=== PATIENT | male | born 1965 | race Caucasian/White ===

== ENCOUNTER 2024-05-16 08:32 | Inpatient (IN) | payer BC, SELFPAY ==
[2024-05-16] VITALS (12 sets, daily range): BP systolic 117–160; BP diastolic 74–101; PULSE 70–108; RESP 12–18; TEMP 36.1–37.4; O2SAT 95–99; BMI 22.9; BMI 22.6
--- NOTE | ~2024-05-16 | XR_ITS ---
EXAMINATION: XR HIP, LEFT CLINICAL INFORMATION: Pain following injury COMPARISON: None available. TECHNIQUE: Two views of the left hip and single view of the pelvis. FINDINGS: There is intertrochanteric fracture on the left without displacement of fragments. There is diffuse osteopenia. There is soft tissue swelling surrounding the left hip. The left and right hips are otherwise unremarkable. XR/XR hip LT w PEL1V IMPRESSION: Left intertrochanteric fracture
--- NOTE | ~2024-05-16 | FL_ITS ---
EXAMINATION: FLUOROSCOPY GUIDANCE FOR NEEDLE PLACEMENT CLINICAL INFORMATION: Fluoroscopic guidance was provided to Dr. Hernandez during left hip ORIF. COMPARISON: Left hip plain films 05/16/2024. TECHNIQUE: Fluoroscopic guidance. FINDINGS: Left hip ORIF with gamma nail and intramedullary digna. 4 images submitted show intramedullary digna and femoral head compression screw in place transfixing an intertrochanteric fracture of the left hip. No complication evident. FLUOROSCOPY TIME: 0.7 minutes IMAGES: 4 DOSE AREA PRODUCT: 0.203 mGy-m2 (milligray-meter squared) FL/FL guidance in OR IMPRESSION: Fluoroscopic guidance for left hip ORIF. Please refer to the full operative report for details. Electronically signed by: Alan Alvarez MD 07/23/2024 09:05 AM EDT
--- NOTE | 2024-05-16 10:07 | ED.GENADULT ---
HPI - General Adult General Chief complaint: Fall Stated complaint: FALL,L HIP PAIN W/DEFORMITY PER EMS Time Seen by Provider: 05/16/24 10:06 Source: patient and EMS Mode of arrival: EMS Limitations: no limitations History of Present Illness ED Provider: Blanca Tellez PA-C HPI narrative: Patient is a 58 year old assigned male at with no reported medical history presenting to the emergency department today with left hip pain. Patient states that he was walking his dog when another dog ran up, off leash, and caused his dog to pull him down. Patient denies any head strike or loss of consciousness. Patient states that his left hip hurts. Patient denies any dizziness, lightheadedness, abdominal pain, nausea, vomiting, fever, chills, blurry vision, double vision, loss of vision, chest pain, difficulty breathing, shortness of breath, back pain, night sweats, pain with urination, increased urinary frequency, increased urinary urgency, blood in his urine or stool, syncope or a near syncopal episode, bowel incontinence, bladder incontinence, or any other complaints at this time. Onset (ago): minute(s) Location: left (hip) Radiation: non-radiation Severity: mild Severity scale (1-10): 4 Quality: aching and dull Pain Consistency: constant Relieving factors: none Exacerbating factors: movement Associated symptoms: denies other symptoms Treatments prior to arrival: none Related Data Home Medications ?Medication ?Instructions ?Recorded ?Confirmed ibuprofen 200 mg tablet (Advil) 400 mg PO DAILY 05/16/24 05/16/24 multivitamin 1 tab PO DAILY 05/16/24 05/16/24 Allergies Allergy/AdvReac Type Severity Reaction Status Date / Time No Known Allergies Allergy Verified 05/16/24 08:38 [No Known Allergies*] Review of Systems Constitutional: Constitutional: Reports no additional constitutional complaints, Denies chills, Denies fever(s) and Denies night sweats Eyes: Eyes: Reports no additional eye complaints, Denies blurry vision, Denies change in vision, Denies diplopia, Denies eye discharge, Denies loss of vision and Denies eye pain ENT: Denies dizziness Cardiovascular: Cardiovascular: Reports no additional cardiovascular complaints, Denies chest pain, Denies lightheadedness, Denies Loss of Consciousness and Denies dyspnea Respiratory: Respiratory: Reports no additional respiratory complaints and Denies dyspnea Gastrointestinal: Gastrointestinal: Reports no additional gastrointestinal complaints, Denies abdominal pain, Denies melena, Denies hematochezia, Denies change in bowel habits and Denies change in stool character Genitourinary: Genitourinary: Reports no additional male genitourinary complaints, Denies hematuria, Denies oliguria, Denies difficulty urinating, Denies dysuria, Denies urinary frequency, Denies urinary hesitancy, Denies urinary incontinence and Denies urinary urgency Musculoskeletal: Musculoskeletal: Reports no additional musculoskeletal complaints, Denies numbness and Denies tingling Comments: left hip pain Neurologic: Denies dizziness, Denies loss of vision, Denies numbness and Denies tingling Psychiatric: Psychiatric: Reports no additional psychiatric complaints Endocrine: Endocrine: Reports no additional endocrine complaints Hematologic/Lymphatic: Hematologic/Lymphatic: Reports no additional hematologic/lymphatic complaints Allergic/Immunologic: Allergic/Immunologic: Reports no additional allergic/immunologic complaints PMFSH Past Medical History Attestation statement: The following information was validated with the patient. Source: old records reviewed and nursing notes reviewed Medical History (Updated 05/16/24 @ 15:21 by ARTURO Rob) No pertinent past medical history Social History Social History Smoked in Last 30 Days: No Use of substances other than those prescribed or required for medical reasons: No Advance Directives: No Advance Directives Information Provided: Yes Do you have a plan to hurt others: No Plan Physical Exam ED Vital Signs: Vital Signs - 24 hr 05/16/24 08:35 05/16/24 08:42 Temperature 98.4 F 98.4 F Pulse Rate 70 70 Respiratory Rate 18 18 Blood Pressure 148/87 H 148/87 H Pulse Oximetry 97 97 Oxygen Delivery Method Room Air Room Air BMI result Body Mass Index 22.9 Const General: cooperative, no acute distress, alert and awake Nutritional Appearance: well nourished Orientation/consciousness: patient oriented x3 Limitations: no limitations HENMT Head: Yes normal to inspection and Yes atraumatic Ears: hearing grossly normal bilaterally and external ears normal General nose exam: Normal external nose present, no nasal discharge noted and no epistaxis Face and sinus: Yes normal facial exam, No abrasion and No laceration Mouth: Normal oral and palatal mucosa present, no drooling and no muffled voice Eyes General: appearance normal, both eyes and all related structures Periorbital: periorbital findings normal Eyelids: Yes eyelids normal Conjunctivae: conjunctivae normal Pupils: Equal, round and reactive pupils present EOM: EOMs intact bilaterally Neck Neck: Yes normal visual inspection, Yes full ROM and Yes no lymphadenopathy Chest Chest palpation & inspection: normal inspection of the chest Resp Effort & Inspection: normal respiratory effort and able to speak in complete sentences GI Inspection: Yes normal to inspection Neuro General: patient oriented x3 and moves all extremities Cranial nerves: Yes Equal, round and reactive pupils present Cognition (Neuro): normal cognition Extrem Other: left leg shortened / rotated Pain with ROM of the left hip General: Yes capillary refill normal Psych Appearance: grossly normal Mental Status: mental status grossly normal Affect: normal affect Attitude: cooperative Thought process: Normal thought process present Thought content: Normal thought content present Insight: Good insight present (Psych) Medications Administered Generic Name Dose Route Start Last Admin Trade Name Freq PRN Reason Stop Dose Admin Oxycodone HCl 5 mg 05/16/24 12:02 05/16/24 13:41 Oxycodone Hcl Immed Release 5 Mg Tablet PO 5 mg Q6H PRN Administration Pain, Moderate(Pain Scale 4-6) Discontinued Medications Generic Name Dose Route Start Last Admin Trade Name Freq PRN Reason Stop Dose Admin Cefazolin Sodium/Dextrose 2 gm in 50 mls @ 100 mls/hr 05/16/24 13:48 05/16/24 14:31 Ancef IV 05/16/24 14:17 100 mls/hr PREOP ONE Administration Medical Decision Making Medical Decision Making [facility] Narrative: Patient is a 58 year old assigned male at with no reported medical history presenting to the emergency department today with left hip pain. Patient's physical exam was as noted in the physical exam portion of this note. Patient's blood work was unremarkable. Patient's EKG was unremarkable. Patient's left hip x-ray showed a left intertrochanteric fracture. I spoke to the orthopedic team who recommended admitting the patient to the medicine service and keeping him NPO at this time. I spoke to the hospitalist team who agreed to admission. I explained my physical exam findings as well as all test results to the patient. I answered all questions asked by the patient. Patient verbalized agreement and understanding with this treatment plan and admission. Differential Diagnosis Differential Diagnoses: The differential diagnosis associated with the presentation includes Hip fracture Fall Admission/Observation Consideration of admission/observation: Escalation of care including admission/observation considered Patient admitted. Consult Healthcare Provider Management of the patient was discussed with: Hospitalist (agreed to admission as noted in the MDM Rationale portion of this note.) and Irrigation Technician (spoke to the orthopedic team as noted in the MDM Rationale portion of this note.) Lab Data [facility] Lab Attestation statement: I reviewed the patient's lab results. My interpretation of these studies and their corresponding values is that they are grossly normal. 05/16/24 10:27 05/16/24 10:27 Labs: Lab Results 05/16/24 Range/Units 10:27 WBC 5.7 (4.8-10.8) X10*3/uL RBC 4.33 L (4.60-5.80) X10*6/uL Hgb 14.9 (14.0-18.0) g/dl Hct 42.7 (42.0-52.0) % MCV 98.6 H (80.0-98.0) fL MCH 34.4 H (27.0-33.0) pg MCHC 34.9 (31.0-36.0) g/dl RDW 12.4 (11.0-16.0) % Plt Count 197 (160-400) X10*3/uL MPV 8.1 L (9.4-12.4) fL Immature Gran % (Auto) 0.4 (0.0-0.4) % Neut % (Auto) 68.8 (45-73) % Lymph % (Auto) 18.4 L (20-40) % [place] % (Auto) 11.0 (2-11) % Eos % (Auto) 0.7 (0-4) % Baso % (Auto) 0.7 (0-2) % Lymph # (Auto) 1.1 L (1.2-4.9) X10*3/uL [place] # (Auto) 0.6 (0.1-1.2) X10*3/uL Eos # (Auto) 0.0 (0.0-0.4) X10*3/uL Baso # (Auto) 0.0 (0.0-0.2) X10*3/uL Abs Immat Gran (auto) 0.02 (0.00-0.03) X10*3/uL Absolute Neuts (auto) 3.9 (2.0-8.3) x10*3/uL Absolute Nucleated RBC 0.000 (0.0-0.012) X10*3/uL Nucleated RBC % (auto) 0.0 (0.0-0.2) /100WBC Sodium 144 (135-145) mmol/L Potassium 4.0 (3.3-5.1) mmol/L Chloride 106 (96-108) mmol/L Carbon Dioxide 24 (22-29) mmol/L Anion Gap 18 (12-20) BUN 13 (9-16) mg/dL Creatinine 0.72 (0.5-1.4) mg/dL Estim Creat Clear Calc 102.0 Estimated GFR > 60 Random Glucose 83 (60-115) mg/dL Calcium 9.2 (8.4-10.2) mg/dL Magnesium 1.8 (1.6-2.6) mg/dL Total Bilirubin 0.8 (0.0-1.0) mg/dL AST 60 H (5-37) U/L ALT 62 H (0-40) U/L Alkaline Phosphatase 68 (39-117) U/L Total Protein 6.9 (6.5-8.0) g/dL Albumin 4.5 (3.5-5.0) g/dL Independent Interpretation I performed an independent interpretation of an: Plain X-Ray Interpretation: My interpretation is in agreement with the radiologist's impression of this imaging study. EXAMINATION: XR HIP, LEFT CLINICAL INFORMATION: Pain following injury COMPARISON: None available. TECHNIQUE: Two views of the left hip and single view of the pelvis. FINDINGS: There is intertrochanteric fracture on the left without displacement of fragments. There is diffuse osteopenia. There is soft tissue swelling surrounding the left hip. The left and right hips are otherwise unremarkable. XR/XR hip LT w PEL1V IMPRESSION: Left intertrochanteric fracture Dictated By: Maegan Howell MD Signed By: Electronically signed by Maegan Howell MD 05/16/24 0959 Vent. Rate: 085 BPM Atrial Rate: 085 BPM P-R Int: 158 ms QRS Dur: 074 ms QT Int: 364 ms P-R-T Axes: 045 -38 -11 degrees QTc Int: 433 ms Normal sinus rhythm Left axis deviation Inferior infarct , age undetermined Abnormal ECG No previous ECGs available Electronically Signed By:PAUL VELAZQUEZ MD Dictated By: Paul Velazquez MD Signed By: Electronically signed by Palu Velazquez MD 05/16/24 1057 Radiology Impression Discussion of test interpretation with radiology: I have reviewed the radiologist's reading. Independent Historian Clinical information obtained from an independent historian. History obtained from or confirmed by: EMS (EMS provided additional history and confirmed the history provided by the patient.) Critical Care Time Critical Care Time Critical Care Time: Yes Total Critical Care Time: 38 Attestation: I spent 38 minutes of Critical Care Time with this patient. This does not include time spent on separately reported billable procedures. Discharge Plan Discharge Clinical Impression: Intertrochanteric fracture of left hip Patient Disposition: Admitted As Inpatient
--- NOTE | 2024-05-16 10:10 | ECG_ITS ---
Test Reason : mechanical fall Blood Pressure : / mmHG Vent. Rate : 085 BPM Atrial Rate : 085 BPM P-R Int : 158 ms QRS Dur : 074 ms QT Int : 364 ms P-R-T Axes : 045 -38 -11 degrees QTc Int : 433 ms Normal sinus rhythm Left axis deviation Inferior infarct , age undetermined Abnormal ECG No previous ECGs available Referred By: Blanca Tellez Electronically Signed By:KARLOS VELAZQUEZ MD
[2024-05-16 10:32] LABS: MANUAL DIFF FLAG NO
[2024-05-16 10:33] LABS: Basophils Percent Auto 0.7 % (0-2); Eosinophils Percent Auto 0.7 % (0-4); Hematocrit 42.7 % (42.0-52.0); Hemoglobin 14.9 g/dl (14.0-18.0); Imm Gran Abs Auto 0.02 X10*3/uL (0.00-0.03); Imm Gran Pct Auto 0.4 % (0.0-0.4); Lymphocytes Absolute Auto 1.1 X10*3/uL (1.2-4.9); Lymphocytes Percent Auto 18.4 % (20-40); Mean Corpuscular HGB Conc 34.9 g/dl (31.0-36.0); Mean Corpuscular Hemoglobin 34.4 pg (27.0-33.0); Mean Corpuscular Volume 98.6 fL (80.0-98.0); Mean Platelet Volume 8.1 fL (9.4-12.4); Monocytes Absolute Auto 0.6 X10*3/uL (0.1-1.2); Neutrophils Absolute Auto 3.9 x10*3/uL (2.0-8.3); Neutrophils Percent Auto 68.8 % (45-73); Platelet Count 197 X10*3/uL (160-400); Red Blood Count 4.33 X10*6/uL (4.60-5.80); Red Cell Distribution Width 12.4 % (11.0-16.0); White Blood Count 5.7 X10*3/uL (4.8-10.8)
--- NOTE | 2024-05-16 10:41 | PHA.MEDREC ---
Addendum entered by Simran Swan RPh 05/16/24 10:47: MED REC REVIEWED Original Note: Pharmacy Consult ? Medication Reconciliation Pharmacy has completed the medication reconciliation. Patient stated they are taking Advil 2 tabs daily and a multi vitamin tablet once daily.
[2024-05-16 10:47] LABS: Alanine Aminotransferase 62 U/L (0-40); Albumin Level 4.5 g/dL (3.5-5.0); Alkaline Phosphatase 68 U/L (39-117); Anion Gap 18 (12-20); Aspartate Amino Transferase 60 U/L (5-37); Bilirubin Total 0.8 mg/dL (0.0-1.0); Blood Urea Nitrogen 13 mg/dL (9-16); Calcium 9.2 mg/dL (8.4-10.2); Carbon Dioxide 24 mmol/L (22-29); Chloride 106 mmol/L (96-108); Estimated Glomerular Filt Rate > 60; Glucose Random 83 mg/dL (60-115); Magnesium 1.8 mg/dL (1.6-2.6); Sodium 144 mmol/L (135-145); Total Protein 6.9 g/dL (6.5-8.0)
--- NOTE | 2024-05-16 12:04 | P.HPHOSP_ITS ---
History of Present Illness Date of Service: 05/16/24 Attending physician on admission: Salvador Hoyos Chief Complaint: fall, l hip pain 58-year-old male with out any significant past medical history though does drink 2 vodka beverages on a nightly basis and is a former smoker with about a 20 pack-year history presented to the ED earlier today for evaluation of left hip pain following a mechanical fall. He reports he was walking his dog and was pulled down when his dog pulled in response to seeing another animal. He landed directly on the left hip. No head strike or loss of consciousness. He was able to get up but has been having difficulty bearing weight and ambulating. Since arrival, vitals are stable though mildly hypertensive at 148/87. Hematology studies unremarkable. Renal function normal, electrolyte levels normal. AST and ALT mildly elevated at 60 and 62 respectively. X-ray of the left hip/pelvis shows left intertrochanteric fracture. ED discussed case with orthopedic surgery recommending admission to medicine with plan for ORIF this afternoon. Review of Systems 2 Review of Systems: Yes all other systems are reviewed and are negative [facility] Medical History (Updated 05/16/24 @ 13:25 by ARTURO Rios) No pertinent past medical history Social History Smoked in Last 30 Days: No Use of substances other than those prescribed or required for medical reasons: No Advance Directives: No Advance Directives Information Provided: Yes Do you have a plan to hurt others: No Plan Meds Allergies Allergy/AdvReac Type Severity Reaction Status Date / Time No Known Allergies Allergy Verified 05/16/24 08:38 [No Known Allergies*] Home Medications ?Medication ?Instructions ?Recorded ?Confirmed ?Last Taken ?Type ibuprofen 200 mg tablet (Advil) 400 mg PO DAILY 05/16/24 05/16/24 05/15/24 History multivitamin 1 tab PO DAILY 05/16/24 05/16/24 05/15/24 History Physical Exam 2 Vital Signs and Narrative: Vital Signs: Last Vital Signs Temp 98.4 F 05/16/24 08:42 Pulse 70 05/16/24 08:42 Resp 18 05/16/24 08:42 BP 148/87 H 05/16/24 08:42 Pulse Ox 97 05/16/24 08:42 O2 Del Method Room Air 05/16/24 08:42 BMI result Body Mass Index 22.9 Results Labs 05/16/24 10:27 05/16/24 10:27 Labs: Laboratory Results - last 24 hr 05/16/24 10:27 MCV 98.6 H MCH 34.4 H MCHC 34.9 RDW 12.4 Plt Count 197 MPV 8.1 L Immature Gran % (Auto) 0.4 Neut % (Auto) 68.8 Lymph % (Auto) 18.4 L [place] % (Auto) 11.0 Eos % (Auto) 0.7 Baso % (Auto) 0.7 Lymph # (Auto) 1.1 L [place] # (Auto) 0.6 Eos # (Auto) 0.0 Baso # (Auto) 0.0 Abs Immat Gran (auto) 0.02 Absolute Neuts (auto) 3.9 Absolute Nucleated RBC 0.000 Nucleated RBC % (auto) 0.0 Anion Gap 18 Estim Creat Clear Calc 102.0 Estimated GFR > 60 Random Glucose 83 Calcium 9.2 Magnesium 1.8 Total Bilirubin 0.8 AST 60 H ALT 62 H Alkaline Phosphatase 68 Total Protein 6.9 Albumin 4.5 Imaging Radiologist's Impressions: Impressions Hip/Pelvis X-Ray 05/16/24 09:14 IMPRESSION: Left intertrochanteric fracture Assessment and Plan (1) Intertrochanteric fracture of left hip: Qualifiers: Encounter type: initial encounter Fracture type: closed Fracture alignment: nondisplaced Qualified Code(s): S72.145A - Nondisplaced intertrochanteric fracture of left femur, initial encounter for closed fracture Status: Acute Plan 58-year-old male with out any significant past medical history though does drink 2 vodka beverages on a nightly basis and is a former smoker with about a 20 pack-year history admitted for left intertrochanteric fracture #Left intertrochanteric fracture -plan per ortho surgery -keep npo -pain management prn #Alcohol use disorder -consumes 2-3 daily per patient. no hx w/d -monitor on ciwa for now, no evidence of wtihdrawal -po thiamine and folic acid #Transaminitis -likely d/t above dvt prophylaxis- scps for now full code pt requiers inpt stay at least 2 midnights for management of intertrochanteric fracture requiring surgical repair, expert consultation, pt eval and probable placement to str Quality Stroke Does the patient have a stroke diagnosis?: No VTE Prior VTE?: No VTE Risk Level:: Medical - moderate - high VTE Device Contraindication: N/A - Device Ordered VTE Drug Contraindication: Treatment Not Indicated
--- NOTE | 2024-05-16 12:55 | P.CONOP_ITS ---
History of Present Illness HPI Consult date: 05/16/24 Chief complaint: left interochanteric fracture Narrative: Patient is a 58-year-old male who presented to the emergency department after a fall earlier today. Patient reports that he was walking his dog, when a larger dog without a leash charged at them, causing the patient to fall onto his left hip. Patient immediately began to experience pain, and came to the emergency department. While in the ED, x-rays of the left hip were obtained, revealing minimally displaced intertrochanteric fracture of the left hip. Right now, the patient reports that he is feeling sore in his left hip. Patient has been totally nonweightbearing since arrival to the hospital. The patient this course of treatment is going to be at this time. Review of Systems 2 Review of Systems: Yes all other systems are reviewed and are negative PMFSH Social History Social History Smoked in Last 30 Days: No Use of substances other than those prescribed or required for medical reasons: No Advance Directives: No Advance Directives Information Provided: Yes Do you have a plan to hurt others: No Plan Meds Allergies Allergy/AdvReac Type Severity Reaction Status Date / Time No Known Allergies Allergy Verified 05/16/24 08:38 [No Known Allergies*] Active Medications: Current Medications Acetaminophen (Acetaminophen 325 Mg Tablet) 650 mg PO Q6H PRN PRN Reason: Pain, Mild (Pain Scale 1-3), fever or headache Calcium Carbonate (Calcium Carbonate 750 Mg Tab.Chew) 750 mg PO Q4H PRN PRN Reason: Heartburn Folic Acid (Folic Acid 1 Mg Tablet) 1 mg PO DAILY MEÑO Magnesium Hydroxide (Milk Of Magnesia 30 Ml Oral.Susp) 30 ml PO DAILY PRN PRN Reason: Constipation Melatonin (Melatonin 3 Mg Tablet) 6 mg PO BEDTIME PRN PRN Reason: Insomnia Morphine Sulfate (Morphine Sulfate 4 Mg/Ml Cartridge) 2 mg IVPUSH Q4H PRN; Protocol PRN Reason: Pain, Severe (Pain Scale 7-10) Oxycodone HCl (Oxycodone Hcl Immed Release 5 Mg Tablet) 5 mg PO Q6H PRN PRN Reason: Pain, Moderate(Pain Scale 4-6) Sodium Chloride (0.9 % Sodium Chloride Flush 3 Ml Syringe) 3 ml IVFLUSH QSHIFT MEÑO Thiamine HCl (Thiamine Hcl 100 Mg Tablet) 100 mg PO DAILY [facility] Home Medications ?Medication ?Instructions ?Recorded ?Confirmed ?Last Taken ?Type ibuprofen 200 mg tablet (Advil) 400 mg PO DAILY 05/16/24 05/16/24 05/15/24 History multivitamin 1 tab PO DAILY 05/16/24 05/16/24 05/15/24 History Physical Exam 2 Vital Signs: Vital Signs: Last Vital Signs Temp 98.4 F 05/16/24 08:42 Pulse 70 05/16/24 08:42 Resp 18 05/16/24 08:42 BP 148/87 H 05/16/24 08:42 Pulse Ox 97 05/16/24 08:42 O2 Del Method Room Air 05/16/24 08:42 BMI result Body Mass Index 22.9 Extrem: Other: No visible or palpable deformity of the left hip No erythema, ecchymosis, evidence of infection noted No shortening or rotational deformity of the leg noted Patient reports tenderness to gentle palpation of the greater trochanter of the left hip Distal sensation of the left lower extremity intact Capillary refill brisk Results Labs 05/16/24 10:27 05/16/24 10:27 Labs: Abnormal lab results 05/16/24 Range/Units 10:27 RBC 4.33 L (4.60-5.80) X10*6/uL MCV 98.6 H (80.0-98.0) fL MCH 34.4 H (27.0-33.0) pg MPV 8.1 L (9.4-12.4) fL Lymph % (Auto) 18.4 L (20-40) % Lymph # (Auto) 1.1 L (1.2-4.9) X10*3/uL AST 60 H (5-37) U/L ALT 62 H (0-40) U/L H & H 05/16/24 Range/Units 10:27 Hgb 14.9 (14.0-18.0) g/dl Hct 42.7 (42.0-52.0) % All other labs normal. Diagnostic results Hip x-ray: report reviewed and image reviewed Assessment and Plan (1) Intertrochanteric fracture of left hip: Qualifiers: Encounter type: initial encounter Fracture type: closed Fracture alignment: nondisplaced Qualified Code(s): S72.145A - Nondisplaced intertrochanteric fracture of left femur, initial encounter for closed fracture Status: Acute Plan 1. Left intertrochanteric hip fracture, minimally displaced At this time, the plan is to proceed with surgical intervention this patient Patient is booked for the OR later this afternoon with Dr. Hernandez Risks and benefits of surgery discussed with patient Patient is amenable to surgery at this time Patient informs me that he had his cup of coffee this morning, but other than that he has not eaten today Patient made NPO immediately Patient denies diabetes, smoking, blood thinners Procedures Date of Service Date of Service: 05/16/24
[2024-05-16] MEDS: oxyCODONE HCl Immed Release 5 MG TABLET PO ×2 (13:41→20:04)
--- NOTE | 2024-05-16 14:09 | PC.NURSE ---
Report called to Alexsandra Martino in Short Stay
[2024-05-16] MEDS: ceFAZolin Sodium/Dextrose,Iso 2 GM/50 ML PIGGYBACK IV (14:31)
[2024-05-16] MEDS: 0.9 % Sodium Chloride Flush 3 ML SYRINGE IVFLUSH (17:38)
--- NOTE | 2024-05-16 17:57 | HO.ANESPROP2 ---
FORMERLY [facility] Active Problems Active Problems: All Active Problems Intertrochanteric fracture of left hip (Acute) Past Medical History Medical History (Updated 05/16/24 @ 15:21 by ARTURO Rob) No pertinent past medical history Family History Family history of problems with anesthesia: No Surgical History History of Problems with Anesthesia: No Social History Social History Household Members Other:: Self with a dog Housing: House Do you presently have visiting nurse or other home services: No Patient Tobacco Use Status: Former Tobacco user Second Hand Smoke Exposure: No Meds Allergies Allergy/AdvReac Type Severity Reaction Status Date / Time No Known Allergies Allergy Verified 05/16/24 08:38 [No Known Allergies*] Active Medications: Current Medications Acetaminophen (Acetaminophen 325 Mg Tablet) 650 mg PO Q6H PRN PRN Reason: Pain, Mild (Pain Scale 1-3), fever or headache Calcium Carbonate (Calcium Carbonate 750 Mg Tab.Chew) 750 mg PO Q4H PRN PRN Reason: Heartburn Folic Acid (Folic Acid 1 Mg Tablet) 1 mg PO DAILY MEÑO Magnesium Hydroxide (Milk Of Magnesia 30 Ml Oral.Susp) 30 ml PO DAILY PRN PRN Reason: Constipation Melatonin (Melatonin 3 Mg Tablet) 6 mg PO BEDTIME PRN PRN Reason: Insomnia Morphine Sulfate (Morphine Sulfate 4 Mg/Ml Cartridge) 2 mg IVPUSH Q4H PRN; Protocol PRN Reason: Pain, Severe (Pain Scale 7-10) Oxycodone HCl (Oxycodone Hcl Immed Release 5 Mg Tablet) 5 mg PO Q6H PRN PRN Reason: Pain, Moderate(Pain Scale 4-6) Last Admin: 05/16/24 13:41 Dose: 5 mg Sodium Chloride (0.9 % Sodium Chloride Flush 3 Ml Syringe) 3 ml IVFLUSH QSHIFT [facility] Last Admin: 05/16/24 17:38 Dose: 3 ml Thiamine HCl (Thiamine Hcl 100 Mg Tablet) 100 mg PO DAILY [facility] Home Medications ?Medication ?Instructions ?Recorded ?Confirmed ?Last Taken ?Type ibuprofen 200 mg tablet (Advil) 400 mg PO DAILY 05/16/24 05/16/24 05/15/24 History multivitamin 1 tab PO DAILY 05/16/24 05/16/24 05/15/24 History Exam Height,Weight and Vital Signs: Height 5 ft 7 in Weight 65.4 kg Last Vital Signs Temp 97.8 F 05/16/24 16:00 Pulse 104 H 05/16/24 16:00 Resp 18 05/16/24 16:00 BP 160/90 H 05/16/24 16:00 Pulse Ox 96 05/16/24 16:00 O2 Del Method Room Air 05/16/24 16:00 Pertinent Lab Results Pertinent Lab Results: Laboratory Tests 05/16/24 05/16/24 10:27 16:02 WBC 5.7 RBC 4.33 L Hgb 14.9 Hct 42.7 MCV 98.6 H MCH 34.4 H MCHC 34.9 RDW 12.4 Plt Count 197 MPV 8.1 L Immature Gran % (Auto) 0.4 Neut % (Auto) 68.8 Lymph % (Auto) 18.4 L Dawes % (Auto) 11.0 Eos % (Auto) 0.7 Baso % (Auto) 0.7 Lymph # (Auto) 1.1 L Dawes # (Auto) 0.6 Eos # (Auto) 0.0 Baso # (Auto) 0.0 Abs Immat Gran (auto) 0.02 Absolute Neuts (auto) 3.9 Absolute Nucleated RBC 0.000 Nucleated RBC % (auto) 0.0 Sodium 144 Potassium 4.0 Chloride 106 Carbon Dioxide 24 Anion Gap 18 BUN 13 Creatinine 0.72 Estim Creat Clear Calc 102.0 Estimated GFR > 60 Random Glucose 83 Calcium 9.2 Magnesium 1.8 Total Bilirubin 0.8 AST 60 H ALT 62 H Alkaline Phosphatase 68 Total Protein 6.9 Albumin 4.5 Blood Type O Positive Antibody Screen NEGATIVE Airway Mallampati Class: II TM Dist: >3cm Neck ROM: Full Assessment and Plan Assessment Anesthesia Assessment: Anesthesia Plan Discussed and Chart Reviewed Final Anesthetic Review Family History of Problems with Anesthesia: No History of Problems with Anesthesia: No NPO: Yes ASA Class: I and Emergency Final Preanesthetic Review: No Changes in Pt Med Stat, Meds/Allgs Chart Reviewed, Consent Obtained/Reviewed and Anes Risks/Benef Reviewed Patient Risk: Intermediate Procedure Risk: Intermediate Anesthetic Plan Anesthetic Plan: GA and Regional Block
[2024-05-16] MEDS: fentaNYL citrate/PF 100 MCG/2 ML VIAL 50 MCG IVPUSH (20:09)
[2024-05-16] MEDS: oxyCODONE HCl Immed Release 5 MG TABLET 10 MG PO (20:52)
[2024-05-16] MEDS: Aspirin 325 MG TABLET PO (20:52)
[2024-05-17] VITALS (9 sets, daily range): BP systolic 123–158; BP diastolic 80–91; PULSE 76–86; RESP 16–18; TEMP 36.2–36.8; O2SAT 94–98
[2024-05-17] MEDS: ceFAZolin Sodium/Dextrose,Iso 2 GM/50 ML PIGGYBACK IV ×2 (03:32→11:32)
[2024-05-17] MEDS: 0.9 % Sodium Chloride Flush 3 ML SYRINGE IVFLUSH ×4 (05:13→19:50)
[2024-05-17 06:51] LABS: MANUAL DIFF FLAG NO
[2024-05-17 06:59] LABS: Basophils Percent Auto 0.1 % (0-2); Hematocrit 35.5 % (42.0-52.0); Hemoglobin 12.3 g/dl (14.0-18.0); Imm Gran Abs Auto 0.02 X10*3/uL (0.00-0.03); Imm Gran Pct Auto 0.3 % (0.0-0.4); Lymphocytes Absolute Auto 0.5 X10*3/uL (1.2-4.9); Lymphocytes Percent Auto 6.7 % (20-40); Mean Corpuscular HGB Conc 34.6 g/dl (31.0-36.0); Mean Corpuscular Hemoglobin 34.2 pg (27.0-33.0); Mean Corpuscular Volume 98.6 fL (80.0-98.0); Mean Platelet Volume 8.7 fL (9.4-12.4); Monocytes Absolute Auto 0.5 X10*3/uL (0.1-1.2); Monocytes Percent Auto 7.6 % (2-11); Neutrophils Absolute Auto 5.7 x10*3/uL (2.0-8.3); Neutrophils Percent Auto 85.3 % (45-73); Platelet Count 212 X10*3/uL (160-400); Red Cell Distribution Width 12.1 % (11.0-16.0); White Blood Count 6.7 X10*3/uL (4.8-10.8)
[2024-05-17] MEDS: Aspirin 325 MG TABLET PO ×2 (07:31→19:50)
[2024-05-17] MEDS: Thiamine HCL 100 MG TABLET PO (07:31)
[2024-05-17] MEDS: Folic Acid 1 MG TABLET PO (07:32)
[2024-05-17] MEDS: oxyCODONE HCl Immed Release 5 MG TABLET 10 MG PO ×4 (07:38→19:54)
--- NOTE | 2024-05-17 07:59 | P.BOP_ITS ---
Brief Operative Note Date of Service: 05/16/24 Pre-op diagnosis: Left hip intertrochanteric fracture Post-op diagnosis: same Procedure: Left hip short gamma nail placement Implants: Wei short gamma nail measuring 11 mm in diameter by 180 mm in length with a 125 degree neck-shaft angle, a standard set screw, lag screw measuring 100 mm in length, distal locking bolt measuring 37.5 mm in length Surgeon: Alfredo Hernandez MD Anesthesia: GLMA Was an Restaurant Line Server used for this Procedure?: No Estimated blood loss (mL): 100 Pathology: none sent Condition: stable Disposition: PACU
--- NOTE | 2024-05-17 08:01 | P.OP_ITS ---
Operative Note Operative Note Date of Service: 05/16/24 Narrative: After the patient was identified as Ulysses Guardado and his left hip was initialed by myself they were brought to the operating room where general anesthesia via LMA was induced by the anesthesiologist in routine fashion. The patient was given 2 g of IV Ancef for infection prophylaxis. The patient was then gently transferred from the hospital bed onto the fracture table. The patient's right lower extremity was placed into the well leg milligan. The patient's left lower extremity was placed in gentle in-line traction with their patella parallel to the floor. All bony prominences were well padded. C-arm AP and lateral radiographs were taken to confirm good fracture reduction. The patient's left hip region was prepped and draped in sterile fashion. A formal time-out was completed. A #10 scalpel blade was used to make a 5 cm incision just proximal to the tip of the greater trochanter. A curved cannulated awl was introduced into the proximal femur in routine fashion. A ball-tipped guidewire was then placed through the cannula and into the femoral canal. The awl was removed. Reaming was begun with a 9 mm reamer. Reaming was increased incrementally up to a size 13 reamer distally. The proximal canal was reamed with a 15.5 mm reamer. The gamma nail measuring 11 mm in diameter by 180 mm in length was passed over the guidewire. Good fracture reduction and nail positioning were confirmed using C-arm AP and lateral radiographs. A 2 cm incision was then made where the lag screw trocar met the patient's lateral thigh. The subcutaneous tissues and fascia constantin were split down to the lateral cortex of the femur using a hemostat. The lag screw trocar was passed down to the lateral cortex of the femur. A threaded guidewire was then placed into the inferior aspect of the femoral head on the AP x-ray and the center of the femoral head on the lateral x-ray. The guidewire measured 100 mm in length. Reaming was then performed over the guidewire to a depth of 100 mm. The lag screw measuring 100 mm in length was then placed over the guidewire. The guidewire was removed. The set screw was then placed into the nail and tightened fully. It was then turned 1/4 of a turn counter-clockwise to allow for fracture compression. The end cap was then put into place in routine fashion. A 2 cm incision was then made where the distal locking bolt trocar met the lateral aspect of the patient's thigh. The subcutaneous tissues and the fascia constantin were split down to the lateral cortex of the femur. The locking bolt hole was drilled in routine fashion. The drill bit measured 37.5 mm in length. The distal locking bolt measuring 37.5 mm in length was put into place without difficulty. Final AP and lateral radiographs showed good fracture reduction and hardware positioning. All 3 wounds were irrigated with copious amounts of normal saline solution. The distal 2 wounds were closed with 2-0 Vicryl and skin madelyn. The proximal wound was once again irrigated. The fascia constantin was closed with 0 Vicryl [id number] interrupted suture. The wound was once again irrigated. The subcutaneous tissues were closed with 2-0 Vicryl interrupted suture. The skin was closed with skin stapl es. Dry sterile dressing was placed over all incisions. The patient was gently transferred from the fracture table onto their hospital bed. The patient was awoken and extubated in the operating room. The patient was transferred to the recovery room in stable condition.
[2024-05-17 08:06] LABS: Anion Gap 14 (12-20); Blood Urea Nitrogen 17 mg/dL (9-16); Creatinine Clr Calc Pharmacy 74.9; Estimated Glomerular Filt Rate > 60
[2024-05-17 08:07] LABS: Calcium 8.6 mg/dL (8.4-10.2); Carbon Dioxide 25 mmol/L (22-29); Chloride 101 mmol/L (96-108); Glucose Random 239 mg/dL (60-115); Potassium 3.8 mmol/L (3.3-5.1); Sodium 136 mmol/L (135-145)
--- NOTE | 2024-05-17 08:45 | P.PNIM_ITS ---
Subjective Subjective Date of Service: 05/17/24 Interval History: pain controlled Physical Exam 2 Vital Signs: Vital Signs: Last Vital Signs Temp 98.0 F 05/17/24 08:00 Pulse 86 05/17/24 08:00 Resp 16 05/17/24 08:00 BP 144/87 H 05/17/24 08:00 Pulse Ox 97 05/17/24 08:00 O2 Del Method Room Air 05/17/24 08:00 O2 Flow Rate 2 05/16/24 20:29 BMI result Body Mass Index 22.6 General: AO X 3, no acute distress Resp: CTA bilateral, no accessory muscles used CVS: S1,S2,RRR GI: soft, non tender, non distended Neuro: motor grossly intact, alert Psych: appropriate affect, appropriate insight Objective Data Active Medications Acetaminophen (Acetaminophen 325 Mg Tablet) 650 mg PO Q6H PRN PRN Reason: Pain, Mild (Pain Scale 1-3), fever or headache Aspirin (Aspirin 325 Mg Tablet) 325 mg PO BID [facility] Last Admin: 05/17/24 07:31 Dose: 325 mg Documented By: MADI Calcium Carbonate (Calcium Carbonate 750 Mg Tab.Chew) 750 mg PO Q4H PRN PRN Reason: Heartburn Folic Acid (Folic Acid 1 Mg Tablet) 1 mg PO DAILY [facility] Last Admin: 05/17/24 07:32 Dose: 1 mg Documented By: MADI Cefazolin Sodium/Dextrose (Ancef) 2 gm in 50 mls @ 100 mls/hr IV Q8H [facility] Stop: 05/17/24 15:00 Last Infusion: 05/17/24 05:16 Dose: Infused Documented By: KRISTOFER Magnesium Hydroxide (Milk Of Magnesia 30 Ml Oral.Susp) 30 ml PO DAILY PRN PRN Reason: Constipation Magnesium Hydroxide (Milk Of Magnesia 30 Ml Oral.Susp) 30 ml PO DAILY PRN PRN Reason: Constipation Melatonin (Melatonin 3 Mg Tablet) 6 mg PO BEDTIME PRN PRN Reason: Insomnia Morphine Sulfate (Morphine Sulfate 4 Mg/Ml Cartridge) 2 mg IVPUSH Q4H PRN; Protocol PRN Reason: Pain, Severe (Pain Scale 7-10) Oxycodone HCl (Oxycodone Hcl Immed Release 5 Mg Tablet) 10 mg PO Q4H PRN PRN Reason: Pain, Severe (Pain Scale 7-10) Last Admin: 05/17/24 07:38 Dose: 10 mg Documented By: MADI Oxycodone HCl (Oxycodone Hcl Immed Release 5 Mg Tablet) 5 mg PO Q4H PRN PRN Reason: Pain, Moderate(Pain Scale 4-6) Sodium Chloride (0.9 % Sodium Chloride Flush 3 Ml Syringe) [facility] Last Admin: 05/17/24 07:30 Dose: 3 ml Documented By: MADI Sodium Chloride (0.9 % Sodium Chloride Flush 3 Ml Syringe) 3 ml IVFLUSH [facility] Last Admin: 05/17/24 07:32 Dose: Not Given Documented By: MADI Non-Admin Reason: already documented Thiamine HCl (Thiamine Hcl 100 Mg Tablet) 100 mg PO DAILY [facility] Last Admin: 05/17/24 07:31 Dose: 100 mg Documented By: MADI Labs 05/17/24 05:38 05/17/24 05:38 Labs: Laboratory Results - last 24 hr 05/16/24 05/16/24 05/17/24 10:27 16:02 05:38 MCV 98.6 H 98.6 H MCH 34.4 H 34.2 H MCHC 34.9 34.6 RDW 12.4 12.1 Plt Count 197 212 MPV 8.1 L 8.7 L Immature Gran % (Auto) 0.4 0.3 Neut % (Auto) 68.8 85.3 H Lymph % (Auto) 18.4 L 6.7 L Walsh % (Auto) 11.0 7.6 Eos % (Auto) 0.7 0.0 Baso % (Auto) 0.7 0.1 Lymph # (Auto) 1.1 L 0.5 L Walsh # (Auto) 0.6 0.5 Eos # (Auto) 0.0 0.0 Baso # (Auto) 0.0 0.0 Abs Immat Gran (auto) 0.02 0.02 Absolute Neuts (auto) 3.9 5.7 Absolute Nucleated RBC 0.000 0.000 Nucleated RBC % (auto) 0.0 0.0 Anion Gap 18 14 Estim Creat Clear Calc 102.0 74.9 Estimated GFR > 60 > 60 Random Glucose 83 239 H Calcium 9.2 8.6 D Magnesium 1.8 Total Bilirubin 0.8 AST 60 H ALT 62 H Alkaline Phosphatase 68 Total Protein 6.9 Albumin 4.5 Blood Type O Positive Antibody Screen NEGATIVE Assessment and Plan (1) Intertrochanteric fracture of left hip: Status: Acute (2) Alcoholic fatty liver: Status: Acute (3) Hyperglycemia: Status: Acute Plan 58M no significant pmh presented with mechanical fall complciated by left intertrochanteric fracture Left intertrochanteric fracture due to mechanical fall Postop day 1 Management per orthopedic surgery Alcohol dependence with Alcoholic fatty liver Monitor for withdrawal, alcohol cessation Hyperglycemia Check A1c DVT prophylaxis-aspirin 325 b.i.d. Full code reason for continued hospitalization: Postop monitoring Quality Stroke Does the patient have a stroke diagnosis?: No VTE Prior VTE?: No VTE Risk Level:: Medical - moderate - high VTE Device Contraindication: N/A - Device Ordered VTE Drug Contraindication: Treatment Not Indicated
--- NOTE | 2024-05-17 09:12 | MHC.CM.PN ---
Addendum entered by Nancy Mary 05/17/24 09:15: [facility] NOTIFIED OF PT IN CASE PT IS ABLE TO DC HOME Original Note: PT REPORTS HE LIVES ALONE WITH HIS DOG HE HAS NO SERVICES AND NO DME PT DECLINES TO COMPLETE A HCP PCP: CRYSTAL MALIK DCP: HOME NO SERVICES PT SAYS HIS GF WILL BE STAYING WITH HIM AT DC HE HAS A RIDE HOME
--- NOTE | 2024-05-17 09:18 | PM.PNORT ---
Subjective Subjective Date of Service: 05/17/24 Interval history: Patient is a 58 YO M who is POD 1 for L IMN with Dr. Hernandez secondary to L hip intertrochanteric fracture. Today, the patient reports that he is feeling well today. Patient reports that he has been moving his L leg since surgery. Patient reports that he has been taking his pain medication, and that he is only experiencing soreness at this time. No other acute concerns at this time. Physical Exam Vital Signs: Vital Signs: Last Vital Signs Temp 98.0 F 05/17/24 08:00 Pulse 86 05/17/24 08:00 Resp 18 05/17/24 08:00 BP 144/87 H 05/17/24 08:00 Pulse Ox 97 05/17/24 08:00 O2 Del Method Room Air 05/17/24 08:00 O2 Flow Rate 2 05/16/24 20:29 BMI result Body Mass Index 22.6 Extrem: Other: Dressing in place, clean and dry Sensation to the distal LLE intact Capillary refill brisk Compartments soft, nontender No erythema or edema noted in the L calf Patient is able to flex at the hip without pain or difficulty Procedures Date of Service Date of Service: 05/17/24 Progress Note: A&P Assessment and plan (1) Intertrochanteric fracture of left hip: Status: Acute Plan 1. L femur intertrochanteric fracture, s/p IM nail DOS 05/16/24 Patient is recovering well postoperatively Patient is educated about the typical postoperative course Patient will be evaluated by PT and OT today Continue Aspirin 325 mg PO BID for anticoagulation Continue all other recommendations per medicine Time Spent With Patient Time: Total time managing care of this patient today ____ minutes. Quality Stroke Does the patient have a stroke diagnosis?: No VTE Prior VTE?: No VTE Risk Level:: Medical - moderate - high VTE Device Contraindication: N/A - Device Ordered VTE Drug Contraindication: Treatment Not Indicated
--- NOTE | 2024-05-17 10:35 | HO.POSTANES ---
Post Anesthesia Evaluation Post Anesthesia Evaluation Date of Service: 05/17/24 Vital Signs: Vital Signs Temp Pulse Resp BP Pulse Ox O2 Del Method 05/17/24 08:00 98.0 F 86 18 144/87 H 97 Room Air 05/17/24 08:00 98.0 F 86 16 144/87 H 97 Room Air 05/17/24 04:15 97.3 F 83 18 123/84 97 Room Air 05/17/24 04:00 97.2 F 83 18 123/84 98 Room Air 05/16/24 23:51 96.9 F 95 18 117/74 97 Room Air Anesthesia: General Mental Status: Awake Pain Control: Satisfactory Nausea/Vomiting: None Hydration: Adequate Anesthesia-Related Issues: No Anes. Related Issues
[2024-05-18 03:50] VITALS: BP 142/83; PULSE 84; RESP 16; TEMP 36.2; O2SAT 97
[2024-05-18] MEDS: oxyCODONE HCl Immed Release 5 MG TABLET 10 MG PO ×2 (03:59→08:20)
[2024-05-18 04:00] LABS: Estimated Average Glucose 94 mg/dL; Hemoglobin A1c % 4.9 % (<6.0)
[2024-05-18 06:36] LABS: Estimated Average Glucose 94 mg/dL; Hemoglobin A1c % 4.9 % (<6.0)
[2024-05-18 07:58] VITALS: BP 173/100; PULSE 98; RESP 18; TEMP 36.4; O2SAT 97
[2024-05-18] MEDS: Thiamine HCL 100 MG TABLET PO (08:20)
[2024-05-18] MEDS: Folic Acid 1 MG TABLET PO (08:20)
[2024-05-18] MEDS: Aspirin 325 MG TABLET PO (08:20)
[2024-05-18] MEDS: 0.9 % Sodium Chloride Flush 3 ML SYRINGE IVFLUSH (08:21)
--- NOTE | 2024-05-18 09:09 | PM.DS ---
DS: Providers Provider Date of Service: 05/18/24 Date of admission: 05/16/24 12:02 Primary care physician: Joey Adame MD DS: Diagnosis Discharge Diagnosis (1) Intertrochanteric fracture of left hip: Status: Acute DS: Summary Hospital Course Hospital Course: from initial hpi: 58-year-old male with out any significant past medical history though does drink 2 vodka beverages on a nightly basis and is a former smoker with about a 20 pack-year history presented to the ED earlier today for evaluation of left hip pain following a mechanical fall. He reports he was walking his dog and was pulled down when his dog pulled in response to seeing another animal. He landed directly on the left hip. No head strike or loss of consciousness. He was able to get up but has been having difficulty bearing weight and ambulating. Since arrival, vitals are stable though mildly hypertensive at 148/87. Hematology studies unremarkable. Renal function normal, electrolyte levels normal. AST and ALT mildly elevated at 60 and 62 respectively. X-ray of the left hip/pelvis shows left intertrochanteric fracture. ED discussed case with orthopedic surgery recommending admission to medicine with plan for ORIF this afternoon. hospital course: Patient was admitted for mechanical fall complicated by left intertrochanteric fracture. Underwent IMN on 05/16/2024. Patient tolerated surgery well. Will be discharged home on high-dose aspirin for DVT prophylaxis and follow up with Orthopedics in 2 weeks. For alcohol dependence with alcoholic fatty liver patient had no signs of withdrawal. Alcohol cessation is recommended. Patient had 1 lab value of hyperglycemia. A1c was normal at 4.9. Patient is feeling better, will be discharged home wi home pt. Time Attestation Discharge Coordination Time (in mins): 33 Quality: Safe Use of Opioids Does Pt have an Active Cancer Diagnosis on the Problem List?: No Quality: Stroke Does the patient have a stroke diagnosis?: No Physical Exam Vital Signs: Vital Signs: Last Vital Signs Temp 97.6 F 05/18/24 07:58 Pulse 98 05/18/24 07:58 Resp 18 05/18/24 07:58 BP 173/100 H 05/18/24 07:58 Pulse Ox 97 05/18/24 07:58 O2 Del Method Room Air 05/18/24 07:58 O2 Flow Rate 2 05/16/24 20:29 BMI result Body Mass Index 22.6 Extrem: Other: Dressing in place, clean and dry Sensation to the distal LLE intact Capillary refill brisk Compartments soft, nontender No erythema or edema noted in the L calf Patient is able to flex at the hip without pain or difficulty DS: Data Data Completed and Pending Labs on day of discharge: Laboratory Results - last 24 hr 05/17/24 05/18/24 05:38 05:33 Estimat Average Glucose 94 94 Hemoglobin A1c % 4.9 4.9 Discharge Plan Discharge Anticipated Discharge Date/Time: 05/18/24 09:01 Patient Disposition: Home Health Service Discharge Diagnosis: hip fracture Referrals: Joey Adame MD [Primary Care Provider] - 1 Week Alfredo Hernandez MD [Physician] - 2 Weeks Discharge Medications: New aspirin 325 mg Tablet 325 mg PO BID Qty: 60 0RF oxycodone 5 mg Tablet 10 mg PO Q4H PRN (Reason: Pain, Severe (Pain Scale 7-10)) Qty: 30 0RF Rx Instructions: Partial Fill upon patient request. Continued multivitamin Tablet 1 tab PO DAILY Discontinued ibuprofen [Advil] 200 mg Tablet 400 mg PO DAILY Discharge Orders: Discharge Order (Routine); Ordered 05/18/24 Ordered By: Alonzo Croft Diet: Advance to usual diet Activity on Discharge: As tolerated Stand Alone Forms: Patient Portal Discharge page Print Language: Icelandic Care Plan Goals: recovery Health Concerns: hip fracture Plan of Treatment: dvt prophylaxis with asa for 4 weeks, follow up with orthopedics in 2 weeks Continue use of walker until follow up Weight bearing as tolerated Leave dressing in place until follow up No showering, sponge bathing until follow up Work with PT services for ROM, strengthening Assessment: see above
--- NOTE | 2024-05-18 09:36 | W.MHC.F2F ---
Service Date Service Date: 05/18/24 Encounter Date of encounter: 05/18/24 Reasons for Services Signs and symptoms assessed: difficulty ambiulating postop Reason for physical therapy: home safety and mobility, therapeutic exercises and restore joint function Reason for occupational therapy: home safety and mobility, therapeutic exercises and restore joint function Homebound: Leaving the home is medically contraindicated at this time without the asist of a device and/or another person due th the listed conditions above and below. Reason homebound: pain with transfers Certification: Based on the above findings, I certify that this patient is confined to the home and needs intermittent mcc care, physical therapy and/or speech therapy, or continues to need occupational therapy. The patient is under my care, and I have initiated the establishment of the plan of care. The patient will be followed by a physician who will periodically review the plan of care. Time Spent With Patient Time: Total time managing care of this patient today ____ minutes.
--- NOTE | 2024-05-18 10:43 | P.PNOP_ITS ---
Subjective Subjective Date of Service: 05/18/24 Interval history: Patient is a 58-year-old male who is postop day 2 status post left intramedullary nail placement after intertrochanteric hip fracture. Today, the patient reports that he is doing well, and is experiencing minimal pain. Ho wever, the patient reports significant swelling in his left knee, ongoing since last night. Patient denies any erythema, ecchymosis. Patient reports that he has been working with physical therapy, and he is not having difficulty ambulating. Per Medicine, plan is to discharge the patient home with services today. Physical Exam Vital Signs: Vital Signs: Last Vital Signs Temp 97.6 F 05/18/24 07:58 Pulse 98 05/18/24 07:58 Resp 18 05/18/24 07:58 BP 173/100 H 05/18/24 07:58 Pulse Ox 97 05/18/24 07:58 O2 Del Method Room Air 05/18/24 07:58 O2 Flow Rate 2 05/16/24 20:29 BMI result Body Mass Index 22.6 Extrem: Other: Incision site clean, dry, intact, Aquacel dressing in place No erythema or evidence of infection noted No ecchymosis Noted effusion of the left knee, mildly tender to palpation no erythema, ecchymosis, evidence of infection No open areas Patient is able to flex at the hip Mild tenderness to palpation about the greater trochanter of the left hip Sensation to the distal left lower extremity intact Capillary refill brisk Procedures Date of Service Date of Service: 05/18/24 Progress Note: A&P Assessment and plan (1) Intertrochanteric fracture of left hip: Status: Acute Plan 1. Left hip intertrochanteric fracture status post IM nail placement with Dr. Hernandez DOS 05/16/2024 Patient is recovering well postoperatively Patient is educated about the typical postoperative course Gauze and tape overlying Aquacel dressing removed today Aquacel dressing reinforced with tape proximally and distally Patient is informed of proper Aquacel dressing precautions, namely not getting the dressing wet and keeping it in place Patient informed that if it dressing does get wet or starts to come off, he should call our office and have the dressing replaced Patient informed he can continue to weightbear as tolerated Plan per Medicine is for discharge home with visiting services as patient was cleared for stairs with physical therapy yesterday Patient will follow-up in the office in 2 weeks for wound check, potential staple removal, sooner with any acute concerns Time Spent With Patient Time: Total time managing care of this patient today ____ minutes. Quality Stroke Does the patient have a stroke diagnosis?: No VTE Prior VTE?: No VTE Risk Level:: Medical - moderate - high VTE Device Contraindication: N/A - Device Ordered VTE Drug Contraindication: Treatment Not Indicated
--- NOTE | 2024-05-18 10:50 | MHC.CM.PN ---
PT CLEARED TO DC TODAY, HOME WITH [facility] FOR PT AND OT PT HAS ARRANGED HIS OWN TRANSPORTATION
== END 2024-05-18 12:32 | disposition home health service (06) | DRG 308 ==
LOC: HO.ED 10:07 → HO.EDOVER 12:07 → HO.S3 14:56
PROVIDERS: Orthopaedic Surgery; Physician Assistant Medical; Admitting Provider Physician Assistant; Emergency Provider Emergency Medicine Emergency Medical Services; PCP Internal Medicine; Visit Provider Internal Medicine
PROC: 0QS736Z Reposition Left Upper Femur with Intramedullary Internal Fixation Device, Percutaneous Approach (ICD-10-PCS; principal; 2024-05-16 15:30)
DX: S72.145A Nondisplaced intertrochanteric fracture of left femur, initial encounter for closed fracture (principal); K70.0 Alcoholic fatty liver; F10.20 Alcohol dependence, uncomplicated; W19.XXXA Unspecified fall, initial encounter; Y93.K1 Activity, walking an animal; Z87.891 Personal history of nicotine dependence; Z79.899 Other long term (current) drug therapy
CPT/HCPCS: 36415; 73502; 80048; 80053; 83036; 83735; 85025; 86850; 86900; 86901; 93005; 97116; 97161; 97165; 99285; C1713; J0131; J0690; J1100; J2250; J2405; J2704; J2795; J3010

== ENCOUNTER → 2024-05-16 10:10 | Outpatient (BNV) | payer SELFPAY | PROVIDERS: Emergency Provider Emergency Medicine Emergency Medical Services; PCP Internal Medicine; Visit Provider Internal Medicine Cardiovascular Disease | DX: R94.31 Abnormal electrocardiogram [ECG] [EKG] (principal) | CPT/HCPCS: 93010 ==

== ENCOUNTER → 2024-05-16 12:02 | Outpatient (BNV) | payer BC, SELFPAY | PROVIDERS: Admitting Provider Physician Assistant; Emergency Provider Emergency Medicine Emergency Medical Services; PCP Internal Medicine | DX: S72.145A Nondisplaced intertrochanteric fracture of left femur, initial encounter for closed fracture (principal) | CPT/HCPCS: 27245; 99024; 99222 ==

== ENCOUNTER → 2024-05-16 12:02 | Outpatient (BNV) | payer BC, SELFPAY | PROVIDERS: Admitting Provider Physician Assistant; Emergency Provider Emergency Medicine Emergency Medical Services; PCP Internal Medicine; Visit Provider Physician Assistant | DX: S72.145A Nondisplaced intertrochanteric fracture of left femur, initial encounter for closed fracture (principal); W19.XXXA Unspecified fall, initial encounter; R74.01 Elevation of levels of liver transaminase levels | CPT/HCPCS: 99223; 99232; 99239; G0180 ==

== ENCOUNTER 2024-06-04 09:20 | Outpatient (AMB) | payer BC, SELFPAY ==
--- NOTE | 2024-06-04 09:23 | A.OFFVIS_ITS ---
Intake Visit Reasons: PO LT hip IMN 05/16/2024 DR Michele Note: Ulysses is a 58 year old male who presents to the office today for PO LT hip IMN 05/16/2024 Patient reports he is doing well, states his pain is tolerable and is able to get through the day. He does walk with 1 crutch. He denies any fevers or chills. Allergies No Known Allergies [No Known Allergies*] Allergy (Verified 06/04/24 09:29) Medication List - Last Reconciled 06/04/24 by Alfredo Hernandez MD aspirin 325 mg PO BID multivitamin 1 tab PO DAILY oxycodone 10 mg (2 x 5 mg) PO Q4H PRN PFSH Medical History (Updated 06/03/24 @ 07:24 by Alfredo Hernandez MD) Alcoholic fatty liver No pertinent past medical history Social History (Reviewed 06/04/24 @ 09:29 by Emily Gonzales [facility]) Household Members Other:: Self with a dog Housing: House Do you presently have visiting nurse or other home services: No Comment: COUNTS CORRECT Patient Tobacco Use Status: Former Tobacco user Second Hand Smoke Exposure: No service: No Physical Exam Extrem Other: Left hip examination shows that the surgical incisions are healing well, no erythema, minimal discomfort with range of motion, no crepitus with range of motion Results Reviewed Results Reviewed: X-rays of the patient's left hip show a short gamma nail in good position, the intertrochanteric fracture remains in good alignment with a good reduction Assessment & Plan Assessment & Plan (1) Left hip pain: Code(s): M25.552 - Pain in left hip Category: Medical Plan Mr. Guardado is doing well after undergoing left hip short gamma nail placement on 05/16/2024. His madelyn were removed and Steri-Strips placed over his incisions. Can gradually progress to activities as tolerated. He will contact me prior to his follow-up appointment in 6 weeks should any questions or concerns arise. Feel free to call me at any time should questions regarding his orthopedic management arise. Orders: Orders XR hip LT min 2V Today M25.552 - Pain in left hip Coding Level of Care Code Global (86302) Diagnoses Left hip pain M25.552
== END 2024-06-04 09:43 | disposition home or self-care (01) ==
PROVIDERS: PCP Internal Medicine; Visit Provider Orthopaedic Surgery
DX: M25.552 Pain in left hip (principal)
CPT/HCPCS: 99024

== ENCOUNTER 2024-06-04 09:42 | Outpatient (REF) | payer BC, SELFPAY ==
--- NOTE | ~2024-06-04 | XR_ITS ---
EXAMINATION: XR HIP, LEFT CLINICAL INFORMATION: Pain in the left hip COMPARISON: Intraoperative imaging 05/16/2024. Preoperative radiograph 05/16/2024 of the left hip and pelvis. TECHNIQUE: Two views of the left hip. FINDINGS: Postoperative changes with nail and proximal distal screw fixation stabilizing the noted intertrochanteric fracture. Hardware intact. Skin madelyn noted laterally Alignment is unchanged compared with intraoperative examination and improved compared to preoperative examination. An ossification proximal to the nail likely reflects displaced fracture fragments or heterotopic ossification. Skin madelyn in place. Right hip and partially visualized pelvis otherwise normal. XR/XR hip LT min 2V IMPRESSION: Postoperative changes related to ORIF of left hip fracture. Alignment is unchanged compared with intraoperative examination and improved compared to preoperative examination. Electronically signed by: Boubacar Ansari MD 06/27/2024 08:13 PM EDT
== END 2024-06-04 09:43 | disposition home or self-care (01) ==
LOC: HO.HOSX 09:42
PROVIDERS: Visit Provider Orthopaedic Surgery
DX: M25.552 Pain in left hip (principal); S72.92XD Unspecified fracture of left femur, subsequent encounter for closed fracture with routine healing; Z98.890 Other specified postprocedural states
CPT/HCPCS: 73502

== ENCOUNTER 2024-07-29 08:00 | Outpatient (RCR) | payer BC, SELFPAY ==
--- NOTE | 2024-07-29 09:45 | MHC.PT.DC ---
[facility] [place] Office [place] [facility] [place] Office [address] Adis Arreaga [address] [facility] [phone] F: [phone] F: [phone] F: [phone] F: [phone] Physical Therapy Discharge Report Diagnosis: Fracture of L femur, s/p IM nail placement Date of Surgery: 05/16/24 Date of Evaluation: 06/05/24 Date of Discharge: 07/29/24 Treatments to Date: 14 Cancellations to Date: No Shows to Date: Discharge Status: Achieved Goals Improved Function Independent with HEP Discharge Summary: Ulysses has been an active participant in his therapy with good home program compliance. We are in agreement with DC today as he has met all of his therapeutic goals, is managed of his initial symptoms, and is independent with his home exercise program for self management. Electronically signed by: Burke Moore PT. Please sign and return to therapist. Thank you for your referral.
== END 2024-07-29 08:50 | disposition home or self-care (01) ==
LOC: HO.PT 08:00
DX: S72.145D Nondisplaced intertrochanteric fracture of left femur, subsequent encounter for closed fracture with routine healing (principal)
CPT/HCPCS: 97110; 97112; 97161

== ENCOUNTER 2024-08-06 09:32 | Outpatient (AMB) | payer BC, SELFPAY ==
--- NOTE | 2024-08-06 09:43 | MHC.OFFVIS ---
Intake Visit Reasons: PO LT hip IMN 05/16/2024 DR Michele Note: Ulysses is a 58 year old male who presents with complaints of mild intermittent discomfort along the lateral aspect of his left hip after undergoing placement of a short gamma nail on 05/16/2024. He continues with his home exercise program. 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 He does not take any medicines for his discomfort. He denies any fevers or chills Allergies No Known Allergies [No Known Allergies*] Allergy (Verified 08/06/24 09:44) Medication List - Last Reconciled 08/06/24 by Alfredo Hernandez MD aspirin 325 mg PO BID multivitamin 1 tab PO DAILY oxycodone 10 mg (2 x 5 mg) PO Q4H PRN PFSH Medical History (Updated 06/03/24 @ 07:24 by Alfredo Hernandez MD) Alcoholic fatty liver No pertinent past medical history Social History Household Members Other:: Self with a dog Housing: House Do you presently have visiting nurse or other home services: No Comment: COUNTS CORRECT Patient Tobacco Use Status: Former Tobacco user Second Hand Smoke Exposure: No service: No Physical Exam Extrem Other: Left hip examination shows minimal discomfort with range of motion, mild tenderness over his greater trochanteric bursa, no crepitus with range of motion Results Reviewed Results Reviewed: X-rays of the patient's left hip show a short gamma nail in good position with no signs of loosening, callus formation at the intertrochanteric fracture site, no increase in fracture displacement or angulation Assessment & Plan Assessment & Plan (1) Left hip pain: Code(s): M25.552 - Pain in left hip Category: Medical Plan Mr. Guardado continues to do very well after undergoing open reduction and internal fixation of his left hip intertrochanteric fracture on 05/16/2024. He will continue with his home exercise program. I will clear him to return to work over the next few weeks as his discomfort and strength have improved. He will contact me prior to his follow-up appointment in 3 months should any questions or concerns arise. Orders: Orders XR hip LT min 2V Today M25.552 - Pain in left hip Coding Level of Care Code Global (64289) Diagnoses Left hip pain M25.552
== END 2024-08-06 10:07 | disposition home or self-care (01) ==
PROVIDERS: Visit Provider Orthopaedic Surgery
DX: M25.552 Pain in left hip (principal)
CPT/HCPCS: 99024

== ENCOUNTER 2024-08-06 14:27 | Outpatient (REF) | payer BC, SELFPAY | END 2024-08-06 14:28 | disposition home or self-care (01) | LOC: HO.HOSX 14:27 | PROVIDERS: Visit Provider Orthopaedic Surgery | DX: M25.552 Pain in left hip (principal) | CPT/HCPCS: 73502 ==

== ENCOUNTER 2024-10-08 08:57 | Outpatient (AMB) | payer BC, SELFPAY ==
--- NOTE | 2024-10-08 09:05 | MHC.OFFVIS ---
Vital Signs 10/08/24 09:06 Height 5 ft 7 in Weight 144 lb BMI 22.6 Intake Visit Reasons: OV LT hip IMN 05/16/2024 , right ankle pain Intake Note: Ulysses is a 58 year old male who presents today for follow up after undergoing placement of a short gamma nail to his left hip on 05/16/2024. The patient reports minimal discomfort in his left hip. Does have pain along the lateral aspect of his right ankle. The patient states that on 09/26/2024 he was walking his dog when he twisted his ankle. He has been weight-bearing as tolerated on his right lower extremity with mild discomfort. He denies any other injuries. Allergies No Known Allergies [No Known Allergies*] Allergy (Verified 10/08/24 09:06) Medication List - Last Reconciled 10/09/24 by Alfredo Hernandez MD naproxen sodium (Aleve) 220 mg PO BID PRN PFSH Medical History (Updated 10/08/24 @ 09:45 by Alfredo Hernandez MD) Alcoholic fatty liver No pertinent past medical history Social History Household Members Other:: Self with a dog Housing: House Do you presently have visiting nurse or other home services: No Comment: COUNTS CORRECT Patient Tobacco Use Status: Former Tobacco user Second Hand Smoke Exposure: No service: No Physical Exam Vital Signs: BMI result Body Mass Index 22.6 Extrem Other: Left hip examination shows that the surgical incision is well healed, no erythema, no discomfort with range of motion, minimal tenderness over his bursa Right ankle examination shows mild swelling along his lateral malleolus, tenderness over his lateral malleolus, no medial tenderness or swelling Results Reviewed Results Reviewed: X-rays of the patient's left hip taken today show a short gamma nail in good position with no signs of loosening, bony trabecula crossing his intertrochanteric fracture site X-rays of the patient's right ankle taken today show a minimally displaced lateral malleolus fracture, no medial joint space widening Assessment & Plan Assessment & Plan (1) Right ankle pain: Code(s): M25.571 - Pain in right ankle and joints of right foot Category: Medical Plan Mr. Guardado presents with right ankle pain due to a minimally displaced lateral malleolus fracture. I had a lengthy discussion with the patient regarding the treatment options. I did recommend that the patient has where a protective CAM walker boot to prevent worsening of his injury. The patient does not wish to wear a boot. The patient does understand that he is at increased risk for fracture displacement and possible deltoid ligament injury. He will continue with his activity modifications. He will contact me prior to his follow-up appointment in 4 weeks should his symptoms worsen in any way. Feel free to call me at any time should questions regarding his orthopedic management arise. I spent 21 minutes in reviewing the patient's records and imaging studies, seeing the patient and documenting in the medical record. Orders: Orders XR hip LT min 2V 10/08/24 M25.552 - Pain in left hip XR ankle RT min 3V 10/08/24 M25.571 - Pain in right ankle and joints of right foot Coding Level of Care Code Est Pt Level 3 (82933) Complex EM visit Add On G2211 Diagnoses Right ankle pain M25.571
[2024-10-08 09:06] VITALS: BMI 22.6
== END 2024-10-08 09:57 | disposition home or self-care (01) ==
PROVIDERS: Visit Provider Orthopaedic Surgery
DX: M25.571 Pain in right ankle and joints of right foot (principal)
CPT/HCPCS: 99213

== ENCOUNTER 2024-10-08 09:45 | Outpatient (REF) | payer BC, SELFPAY ==
--- NOTE | ~2024-10-08 | XR_ITS ---
EXAMINATION: XR RIGHT ANKLE CLINICAL INFORMATION: Pain in right ankle and joints of right foot M25.571. COMPARISON: None available. TECHNIQUE: AP, lateral, and mortise views of the right ankle. FINDINGS: Mildly displaced distal fibular fracture with surrounding soft tissue swelling. Ankle mortise is preserved. Talar dome is intact. Medial malleolus is normal. There is a small inferior calcaneal spur. XR/XR ankle RT min 3V IMPRESSION: 1. Mildly displaced distal fibular fracture. 2. Soft tissue swelling. 3. Small inferior calcaneal spur. (Referring physician staff is being called, by physician staff assistance, to be alerted of the above critical findings and recommendations.) [employer] communication system 10/30/2024 8:20 PM DIAGNOSTIC TECH Electronically signed by: Marjan Mccarty MD 10/30/2024 09:21 PM [facility]
--- NOTE | ~2024-10-08 | XR_ITS ---
EXAMINATION: XR HIP LEFT CLINICAL INFORMATION: Pain in left hip M25.552. COMPARISON: XR Left hip 08/06/2024 TECHNIQUE: Two views of the left hip. FINDINGS: Transfemoral nail fracture fixation hardware appears intact. Mild bilateral hip osteoarthritis. No new abnormality. XR/XR hip LT min 2V IMPRESSION: Mild bilateral hip osteoarthritis. No new abnormality. Electronically signed by: Satya Howell MD 11/14/2024 02:05 PM [facility]
== END 2024-10-08 09:46 | disposition home or self-care (01) ==
LOC: HO.HOSX 09:45
PROVIDERS: Visit Provider Orthopaedic Surgery
DX: M25.552 Pain in left hip (principal); M25.571 Pain in right ankle and joints of right foot
CPT/HCPCS: 73502; 73610

== ENCOUNTER 2024-11-12 11:48 | Outpatient (REF) | payer BC, SELFPAY ==
--- NOTE | ~2024-11-12 | XR_ITS ---
EXAMINATION: XR ANKLE 3 OR MORE VIEWS RIGHT HISTORY: M25.571 - Pain in right ankle and joints of right foot COMPARISON: Comparison is made with the prior examination dated 10/08/2024. FINDINGS: Three views of the right ankle are submitted. Osseous mineralization is normal. Again seen is a mildly displaced oblique fracture of the distal fibula. There has been slight blurring of the fracture margins with a small amount of interval callus formation, consistent with healing. The joint spaces are preserved. There is a small plantar calcaneal spur. There is mild persistent soft tissue swelling over the lateral malleolus. XR/XR ankle RT min 3V IMPRESSION: Healing mildly displaced oblique fracture of the distal fibula. Electronically signed by: Micah Rizvi MD 11/14/2024 07:52 AM [facility]
== END 2024-11-12 11:49 | disposition home or self-care (01) ==
LOC: HO.HOSX 11:48
PROVIDERS: Visit Provider Orthopaedic Surgery
DX: M25.571 Pain in right ankle and joints of right foot (principal)
CPT/HCPCS: 73610

== ENCOUNTER 2024-11-12 14:25 | Outpatient (AMB) | payer BC, SELFPAY ==
--- NOTE | 2024-11-12 14:35 | A.OFFVIS_ITS ---
Vital Signs 11/12/24 14:36 Height 5 ft 7 in Weight 144 lb BMI 22.6 Intake Visit Reasons: Right ankle discomfort Intake Note: Ulysses is a 59 year old male who presents with complaints of mild discomfort along the lateral aspect of his right ankle. The patient did undergo left hip surgery on 05/16/2024. He reports minimal discomfort in his left hip. He denies any fevers or chills. He continues with his home stretching program. 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 Allergies No Known Allergies [No Known Allergies*] Allergy (Verified 11/12/24 14:36) Medication List - Last Reconciled 11/12/24 by Alfredo Hernandez MD naproxen sodium (Aleve) 220 mg PO BID PRN [facility] Medical History (Updated 11/12/24 @ 14:58 by Alfredo Hernandez MD) Alcoholic fatty liver No pertinent past medical history Social History Household Members Other:: Self with a dog Housing: House Do you presently have visiting nurse or other home services: No Comment: COUNTS CORRECT Patient Tobacco Use Status: Former Tobacco user Second Hand Smoke Exposure: No service: No Physical Exam Vital Signs: BMI result Body Mass Index 22.6 Const Other: Well-nourished well-developed very friendly male awake alert and oriented x3 in no acute distress Extrem Other: Left hip examination shows minimal discomfort with Range of motion right ankle examination shows minimal tenderness over his lateral malleolus, minimal discomfort with range of motion, no tenderness over his deltoid ligament Results Reviewed Results Reviewed: X-rays of the patient's right ankle taken today show callus formation at the lateral malleolus fracture site, no increase in fracture displacement or angulation, no medial joint space widening Assessment & Plan Assessment & Plan (1) Fracture of right ankle, lateral malleolus: Code(s): S82.61XA - Displaced fracture of lateral malleolus of right fibula, initial encounter for closed fracture Category: Medical Plan Ulysses presents for follow-up of his right ankle lateral malleolus fracture. At this point he is clinically and radiographically healing. He will continue with his range of motion exercises to prevent stiffness. I will keep him out of work until his fracture is clinically healed. I will see him back in 4-6 weeks' time for repeat clinical examination. Feel free to call me at any time should questions regarding his orthopedic management arise. I spent 21 minutes in reviewing the patient's records and imaging studies, seeing the patient and documenting in the medical record. Orders: Orders XR ankle RT min 3V Today M25.571 - Pain in right ankle and joints of right foot Coding Level of Care Code Est Pt Level 3 (75064) Complex EM visit Add On G2211 Diagnoses Fracture of right ankle, lateral malleolus S82.61XA
[2024-11-12 14:36] VITALS: BMI 22.6
== END 2024-11-12 14:56 | disposition home or self-care (01) ==
PROVIDERS: Visit Provider Orthopaedic Surgery
DX: S82.61XA Displaced fracture of lateral malleolus of right fibula, initial encounter for closed fracture (principal)
CPT/HCPCS: 99213

== ENCOUNTER 2024-12-11 12:47 | Outpatient (AMB) | payer BC, SELFPAY ==
--- NOTE | 2024-12-11 12:48 | MHC.OFFVIS ---
Vital Signs 12/11/24 12:49 Height 5 ft 7 in Weight 144 lb BMI 22.6 Intake Visit Reasons: Right ankle discomfort Intake Note: Ulysses is a 59 year old male who presents with complaints of mild intermittent discomfort along the lateral aspect of his right ankle. The patient states that he did walk at the [employer] this morning for exercise with minimal discomfort. He does not take any medicines for his discomfort. He would like to return to work. Allergies No Known Allergies [No Known Allergies*] Allergy (Verified 12/11/24 12:49) [facility] Medical History (Updated 11/12/24 @ 14:58 by Alfredo Hernandez MD) Alcoholic fatty liver No pertinent past medical history Social History Household Members Other:: Self with a dog Housing: House Do you presently have visiting nurse or other home services: No Comment: COUNTS CORRECT Patient Tobacco Use Status: Former Tobacco user Second Hand Smoke Exposure: No service: No Physical Exam Vital Signs: BMI result Body Mass Index 22.6 Extrem Other: Right ankle examination shows full range of motion when compared to his left ankle, no discomfort with range of motion, no tenderness to palpation over his lateral malleolus Assessment & Plan Assessment & Plan (1) Fracture of right ankle, lateral malleolus: Code(s): S82.61XA - Displaced fracture of lateral malleolus of right fibula, initial encounter for closed fracture Category: Medical Plan Mr. Guardado presents for follow-up of his right ankle lateral malleolus fracture. At this point he is clinically healed. He has minimal discomfort. He continues to walk for exercise. I have cleared him to return to work. Will follow up with me on an as-needed basis should any questions or concerns arise. I spent 21 minutes in reviewing the patient's records and imaging studies, seeing the patient and documenting in the medical record. Coding Level of Care Code Est Pt Level 3 (58222) Complex EM visit Add On G2211 Diagnoses Fracture of right ankle, lateral malleolus S82.61XA
[2024-12-11 12:49] VITALS: BMI 22.6
== END 2024-12-11 13:11 | disposition home or self-care (01) ==
PROVIDERS: Visit Provider Orthopaedic Surgery
DX: S82.61XA Displaced fracture of lateral malleolus of right fibula, initial encounter for closed fracture (principal)
CPT/HCPCS: 99213

== ENCOUNTER → 2024-12-11 12:47 | Outpatient (BNVA) | payer BC, SELFPAY | PROVIDERS: Visit Provider Orthopaedic Surgery ==

== ENCOUNTER 2024-12-16 08:50 | Outpatient (AMB) | payer BC, SELFPAY ==
--- NOTE | 2024-12-16 09:05 | A.OFFPC_ITS ---
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 [place] [facility] [place] office visit/CPE - 7 years ago Last Labs - 04/2024 Acute issue(s) - Elevated BP Past Medical History - Alcohol dependence - Alcohol fatty liver - Elevated BP - Astigmatism - Myopia - Right ankle fracture - Left intertronchanteric fracture - Right wrist fracture - Torn left ACL Surgical History - Intramedullary nailing of left intertr ochanteric fracture - Left ACL repair - Right wrist fracture repair with pins Family History - Brother: HTN Social History - Former smoker, quit 2 years ago, smoke d 2 packs weekly x 30 years. Does not vape. Drinks 3-4 glasses of vodka daily, have been drinking for 10-12 years . Denies recreational drug use - Has been making healthy dietary choice s. Exercises routinely. Generally sleep well Health maintenance - Last eye exam was a year and half ago with [facility]. Referred to apprentice plumber for routine eye exam - Last dental visit was about a year ago ; encouraged to schedule an appointment with his dentist for routine dental care - Last tetanus vaccine was about 6 years ago - Up-to-date on the flu vaccine - Up-to-date on the shingles vaccines - Has not been vaccinated for Pneumonia. Encourage vaccination. He may get the vaccine from his local pharmacy - Last colonoscopy was about 25 years ag o. [place] [facility] [place] [facility] Medical History (Updated 12/16/24 @ 12:11 by Keeley Alfonso CMA) Prominence of intramedullary nail Alcoholic fatty liver No pertinent past medical history Surgical History (Updated 12/16/24 @ 12:11 by Keeley Alfonso CMA) S/P ORIF (open reduction internal fixation) fracture History of repair of ACL Family History (Updated 12/16/24 @ 10:24 by Keeley Alfonso CMA) Brother HTN (hypertension) Social History Household Members Other:: Self with a dog Housing: House Do you presently have visiting nurse or other home services: No Comment: COUNTS CORRECT Patient Tobacco Use Status: Former Tobacco user Cigarettes Per Day: 4 Years Smoked: 30 e-Cigarette/Vaping Use: Never Used Second Hand Smoke Exposure: No service: No Current occupational status: employed Current occupation: [employer] Current occupational exposures/hazards: No (walking on snow and ice) Cognitive needs: No Hearing needs: No Vision needs: Yes (contact lenses ) Questionnaire PHQ-9 Over the last 2 weeks, how often have you been bothered by any of the following problems? 1. Little interest or pleasure in doing things: not at all 2. Feeling down, depressed, or hopeless: not at all 3. Trouble falling or staying asleep, or sleeping too much: not at all 4. Feeling tired or having little energy: not at all 5. Poor appetite or overeating: not at all 6. Feeling bad about yourself - or that you are a failure or have let yourself or your family down: not at all 7. Trouble concentrating on things, such as reading the newspaper or watching television: not at all 8. Moving or speaking so slowly that other people could have noticed. Or the opposite - being so fidgety or restless that you have been moving around a lot more than usual: not at all 9. Thoughts that you would be better off or of hurting yourself in some way: not at all Total score: 0 Depression Screening Interpretation: Negative Depression Screening Done: Yes Source: Developed by Drs. Micah Covington, Kristy Arnold, Francis Hollingsworth and colleagues, with an educational zuleika from [employer]. Thrive Questionnaire Date Thrive assessed: 12/09/24 I am a: Patient What is your living situation today?: I have a steady place to live Within the past 12 months, did the food you bought not last and you didn't have the money to get more?: Never true Within the past 12 months, did you worry whether your food would run out before you got money to buy more?: Never true Do you have trouble paying for medicines?: No Do you have trouble getting transportation to medical appointments?: No Do you have trouble paying your heating and electricity bill?: No Do you have trouble taking care of your child, family member or friend?: No Do you have trouble with day-to-day activities such as bathing, preparing meals, shopping, managing finances, etc.?: No Are you currently unemployed and looking for a job?: No Are you interested in more education?: No Please select the resources that you would like help with: None Currently or been in a relationship where the following occur: No concerns reported THRIVE Score: 0 AUDIT C Alcohol Use Questionnaire (AUDIT-C) 1. How often do you have a drink containing alcohol?: 2-3 times a week 2. How many drinks containing alcohol do you have on a typical day when you are drinking?: 5 or 6 3. How often do you have six or more drinks on one occasion?: Monthly Total Score: 7 Score Reviewed/Action Taken: Yes ALEXA-7 AMB Questionnaire ALEXA-7 Feeling nervous, anxious, or on edge: 0 = Not at all Not being able to stop or control worryin = Not at all Worrying too much about different things: 0 = Not at all Trouble relaxin = Not at all Being so restless that it is hard to sit still: 0 = Not at all Becoming easily annoyed or irritable: 0 = Not at all Feeling afraid as if something awful might happen: 0 = Not at all Total ALEXA-7 score (0-4 normal; 5-9 mild; 10-14 moderate; 15-21 severe): 0 Source: Developed by Drs. Micah Covington, Kristy Arnold, Francis Hollingsworth and colleagues, with an educational zuleika from [employer]. Review of Systems Const Details: Denies chills, Denies fatigue, Denies fever(s), Denies headache(s) and Denies weakness HEENT Denies change in vision, Denies dizziness, Denies headache(s), Denies hearing loss, Denies nasal congestion, Denies sinus pain, Denies sinus pressure and Denies sore throat Card Denies chest pain, Denies lightheadedness, Denies dyspnea and Denies other (palpitations) Resp Denies cough, Denies dyspnea and Denies wheezing GI Denies abdominal pain, Denies melena, Denies hematochezia, Denies change in bowel habits, Denies dyspepsia and Denies nausea Denies hematuria and Denies dysuria Musc Denies abnormal gait, Denies myalgias, Denies arthralgias, Denies numbness and Denies tingling Skin/Breast Denies rash, Denies unusual bruising and Denies wounds Neuro Denies abnormal gait, Denies dizziness, Denies headache(s), Denies memory loss, Denies numbness, Denies Sensory deficit (Neuro), Denies tingling and Denies weakness Psych Denies anxiety, Denies depression and Denies memory loss Endo Denies cold intolerance, Denies fatigue, Denies heat intolerance, Denies polydipsia and Denies polyuria Wild/Lymph Denies easy bleeding and Denies easy bruising Aller/Immun Denies wheezing Physical exam (Primary Care) Vital Signs: Last Vital Signs Temp 98.3 F 12/16/24 09:10 Pulse 96 12/16/24 09:10 BP 170/110 H 12/16/24 09:10 Pulse Ox 100 12/16/24 09:10 Oxygen Delivery Method Room Air 12/16/24 09:10 BMI result Body Mass Index 25.4 Tobacco/Smoking Status: Tobacco use Status Patient Tobacco Use Status Former Tobacco user 12/16/24 09:07 e-Cigarette/Vaping Use Never Used 12/16/24 09:28 PHQ-9: PHQ-9 Score PHQ-9: Total score 0 12/16/24 12:03 Depression Screening Interpretation: Negative Thrive Assessment: Date of Thrive Assessment Date Thrive assessed 12/09/24 12/16/24 09:07 Currently or been in a relationship where the following occur: No concerns reported Const Other: General: no acute distress, well developed, alert and awake Nutritional Appearance: well nourished Orientation/consciousness: patient oriented x3 HENMT Head: Yes normocephalic and Yes atraumatic Ears: hearing grossly normal bilaterally and TM's normal bilaterally General nose exam: Normal external nose present and Normal nares present Mouth: Normal oral and palatal mucosa present and moist mucous membranes Teeth and gingiva: dentition normal Throat: Yes oropharynx normal Eyes Pupils: Equal, round and reactive pupils present and Pupil accommodation reflex normal EOM: EOMs intact bilaterally Neck Neck: Yes normal visual inspection, Yes no lymphadenopathy and Yes trachea midline Thyroid: Thyroid normal Carotids: no bruits Lymphatic: no lymphadenopathy noted Chest Chest palpation & inspection: normal inspection of the chest Resp Effort & Inspection: normal respiratory effort Auscultation: clear to auscultation bilaterally Cardio Rate: regular rate Rhythm: regular rhythm Heart sounds: S1 normal heart sound present, S2 normal heart sound present, no gallops, no murmurs and no rubs Bruits: no abdominal aortic bruits and no carotid bruits GI Palpation (GI): No Abdominal aortic bruit present, Soft to palpation, nontender, No hepatosplenomegaly present and No Rebound tenderness present Auscultation: normal bowel sounds General: Yes no CVA tenderness Back/Spine/Pelvis Back: no CVA tenderness Cervical Spine: cervical ROM normal and No Cervical spine tenderness Thoracic/Lumbar Spine: thoraco-lumbar ROM normal, No pain with thoraco-lumbar ROM, No thoracic spinal tenderness and No lumbar spinal tenderness Skin General: warm and dry. Normal skin color. Normal skin turgor Lesions: no lesions Rashes: no rashes Trauma: no lacerations or abrasions Wounds: no wounds Nails: normal Neuro General: patient oriented x3, gait normal and CN's II-XI intact bilaterally Cranial nerves: Yes Equal, round and reactive pupils present Cognition (Neuro): normal cognition Gait exam (Neuro): Normal gait present Motor exam (neuro): 5/5 motor strength present throughout Sensory Exam: No Sensory deficit (Neuro) Deep tendon reflexes (DTR's): Right patellar reflex intensity grade: 2+ and Left patellar reflex intensity grade: 2+ Extrem General: Yes normal to inspection, No edema and No calf tenderness Psych Appearance: grossly normal Affect: normal affect Attitude: cooperative Thought process: Normal thought process present Coding Level of Care Code New Pt Level 4 (85901) New Pt Prev Care 40-64y(89386) Diagnoses Normal physical examination, routine Z00.00 Hypertension I10 Alcohol dependence F10.20 Alcoholic fatty liver K70.0 Colon cancer screening Z12.11 Prostate cancer screening Z12.5 Myopia H52.10 Astigmatism H52.209 Laboratory tests ordered as part of a complete physical exam (CPE) Z00.00 Assessment & Plan Assessment & Plan (1) Normal physical examination, routine: Code(s): Z00.00 - Encounter for general adult medical examination without abnormal findings Category: Medical Plan: No significant functional limitations noted. Healthy diet and routine exercise encouraged. Advised to perform lab work 2-3 days before next visit. Follow-up in 4 days for hypertension and labs review or sooner with symptoms or concerns. Verbalized understanding and agreed with treatment plan. (2) Hypertension: Code(s): I10 - Essential (primary) hypertension Category: Medical Plan: Resting blood pressure is 170/110, above goal of less than 140/90. Heart rate is 96. He has never been treated for hypertension. However, he has history of elevated blood pressure readings; blood pressure in 04/2024 was 173/100. His brother has history of hypertension. Will start metoprolol tartrate 25 mg daily to target blood pressure and heart rate; advised to take as prescribed; instructed on the risks, benefits, and potential adverse reactions of the medication. Routine exercise and low-sodium diet encouraged. Follow-up in 4 days or sooner or go to the ED with hypertensive symptoms such as headache, visual disturbances, chest pain. Verbalized understanding and agreed with treatment plan. (3) Alcohol dependence: Code(s): F10.20 - Alcohol dependence, uncomplicated Category: Medical Plan: He drinks 3-4 glasses of vodka daily, have been drinking for 10-12 years. He has history of alcohol fatty liver. Instructed on the health risks and complications of excessive alcohol intake and encouraged to avoid or cut down on drinking; advised to drink no more than 2 dri nks a day or 7 drinks a week. Decl[place] [facility] [place] help with his drinking. He intends cut down on his drinking. Will check liver enzymes and make changes as needed. Follow-up as needed. Verbalized understanding and agreed with the plan. (4) Alcoholic fatty liver: Code(s): K70.0 - Alcoholic fatty liver Category: Medical Plan: Plan as above. (5) Colon cancer screening: Code(s): Z12.11 - Encounter for screening for malignant neoplasm of colon Category: Medical Plan: His last colonoscopy was about 25 years ago. [place] [facility] [place]. (6) Prostate cancer screening: Code(s): Z12.5 - Encounter for screening for malignant neoplasm of prostate Category: Medical Plan: PSA lab ordered. (7) Myopia: Code(s): H52.10 - Myopia, unspecified eye Category: Medical Plan: His last eye exam was a year and half ago with [facility]. Referred to apprentice plumber for routine eye exam. Referred to Ophthalmology for routine eye exam. (8) Astigmatism: Code(s): H52.209 - Unspecified astigmatism, unspecified eye Category: Medical Plan: Plan as above. (9) Laboratory tests ordered as part of a complete physical exam (CPE): Code(s): Z00.00 - Encounter for general adult medical examination without abnormal findings Category: Medical Plan: Fasting labs ordered as part of a complete physical exam. Advised to fast for at least 10 hours before getting labs drawn. May drink water Verbalized understanding and agreed with treatment plan. Orders: Orders Complete Blood Count Auto Diff Today Z00.00 - Encounter for general adult med ical examination without abnormal findings TSH reflex Free T4 Today Z00.00 - Encounter for general adult medical examination without abnormal findings UA CC w/rflx Micro + Cult Today Z00.00 - Encounter for general adult medical examination without abnormal findings PSA, Ultra Sensitive Today Z00.00 - Encounter for general adult medical examination without abnormal findings Microalbumin, Random (w Creat) Today Z00.00 - Encounter for general adult medical examination without abnormal findings Comprehensive Parachute. Panel Fast Today Z00.00 - Encounter for general adult medical examination without abnormal findings Lipid Panel Today Z00.00 - Encounter for general adult medical examination without abnormal findings Referrals Gastroenterology Referral Z12.11 - Encounter for screening for malignant neoplasm of colon Ophthalmology Referral H52.10 - Myopia, unspecified eye, H52.209 - Unspecified astigmatism, unspecified eye Medications: New metoprolol tartrate 25 mg PO DAILY 30 days 30 tabs 3RF
[2024-12-16 09:10] VITALS: BP 170/110; PULSE 96; TEMP 36.8; O2SAT 100; BMI 25.4
== END 2024-12-16 09:40 | disposition home or self-care (01) ==
PROVIDERS: Visit Provider Nurse Practitioner Family
DX: Z00.00 Encounter for general adult medical examination without abnormal findings (principal); I10 Essential (primary) hypertension; F10.20 Alcohol dependence, uncomplicated; K70.0 Alcoholic fatty liver; Z12.11 Encounter for screening for malignant neoplasm of colon; Z12.5 Encounter for screening for malignant neoplasm of prostate; H52.10 Myopia, unspecified eye; H52.209 Unspecified astigmatism, unspecified eye

== ENCOUNTER → 2024-12-16 08:50 | Outpatient (BNVA) | payer BC, SELFPAY | PROVIDERS: Visit Provider Nurse Practitioner Family ==

== ENCOUNTER 2024-12-20 08:07 | Outpatient (REF) | payer BC, SELFPAY ==
[2024-12-20 11:08] LABS: MANUAL DIFF FLAG NO
[2024-12-20 11:13] LABS: Basophils Percent Auto 0.8 % (0-2); Eosinophils Absolute Auto 0.1 X10*3/uL (0.0-0.4); Hematocrit 42.7 % (42.0-52.0); Hemoglobin 14.6 g/dl (14.0-18.0); Imm Gran Abs Auto 0.01 X10*3/uL (0.00-0.03); Imm Gran Pct Auto 0.2 % (0.0-0.4); Lymphocytes Absolute Auto 1.3 X10*3/uL (1.2-4.9); Lymphocytes Percent Auto 25.5 % (20-40); Mean Corpuscular HGB Conc 34.2 g/dl (31.0-36.0); Mean Corpuscular Volume 99.3 fL (80.0-98.0); Mean Platelet Volume 8.7 fL (9.4-12.4); Monocytes Absolute Auto 0.9 X10*3/uL (0.1-1.2); Neutrophils Absolute Auto 2.6 x10*3/uL (2.0-8.3); Neutrophils Percent Auto 53.5 % (45-73); Platelet Count 240 X10*3/uL (160-400); Red Cell Distribution Width 11.8 % (11.0-16.0); White Blood Count 4.9 X10*3/uL (4.8-10.8)
[2024-12-20 11:23] LABS: Appearance Urine Clear; Color Urine Yellow; Glucose Urine UA Negative (Negative); Leukocyte Esterase Urine Negative (Negative); Nitrite Urine Negative (Negative); Urine Blood Negative (Negative); Urine Ketones Negative (Negative); Urine Protein Negative (Neg-Trace)
[2024-12-20 11:42] LABS: Alanine Aminotransferase 31 U/L (0-40); Albumin Level 4.2 g/dL (3.5-5.0); Alkaline Phosphatase 80 U/L (39-117); Anion Gap 10 (12-20); Aspartate Amino Transferase 36 U/L (5-37); Bilirubin Total 0.8 mg/dL (0.0-1.0); Blood Urea Nitrogen 14 mg/dL (9-16); Calcium 9.4 mg/dL (8.4-10.2); Carbon Dioxide 27 mmol/L (22-29); Chloride 105 mmol/L (96-108); Cholesterol 224 mg/dL (<200); Estimated Glomerular Filt Rate > 60; Glucose Fasting 89 mg/dL (60-99); HDL Cholesterol 98 mg/dL (>40); LDL Cholesterol Calculated 113 mg/dL (<100); Potassium 4.1 mmol/L (3.3-5.1); Sodium 138 mmol/L (135-145); TSH reflex Free T4 1.43 uIU/mL (0.32-4.0); Total Protein 7.3 g/dL (6.5-8.0); Triglycerides 67 mg/dL (<150)
[2024-12-20 11:58] LABS: Creatinine Urine 133.52 mg/dL; Microalbumin Urine < 5.0 mg/L
[2024-12-25 22:08] LABS: PSA, Ultra Sensitive 1.48 ng/mL
== END 2024-12-20 08:08 | disposition home or self-care (01) ==
LOC: HO.WFDLDS 08:07
PROVIDERS: Visit Provider Nurse Practitioner Family
DX: Z00.00 Encounter for general adult medical examination without abnormal findings (principal); Z12.5 Encounter for screening for malignant neoplasm of prostate; I10 Essential (primary) hypertension
CPT/HCPCS: 36415; 80053; 80061; 81003; 82570; 84153; 84443; 85025

== ENCOUNTER 2024-12-20 09:02 | Outpatient (AMB) | payer BC, SELFPAY ==
--- NOTE | 2024-12-20 09:06 | A.OFFPC_ITS ---
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 Allergies No Known Allergies [No Known Allergies*] Allergy (Verified 12/20/24 09:35) Medication List - Last Reconciled 12/20/24 by Marty Tripathi CNP metoprolol tartrate 25 mg PO DAILY 30 days Tobacco use date assessed: 12/20/24 Dental Screening Dental Screen Date: 12/20/24 Did you have a dental visit in the last 12 months?: Yes Did you have a dental problem in the last 6 months where you did not have access to dental care?: No Was dental information given to patient?: Patient has dentist HPI HPI Comments History of Present Illness Details 59-year-old male presents for hypertensi on and review of recent lab results follow-up. He admits to taking metoprolol as prescribed without adverse reactions. He started taking the medication on 12/16/2024 at night; same day it was prescribed. He has been making healthy dietary choices, including low-sodium diet. He has been exercising routinely. He cut back on his alcohol intake; so far this week, he had 1 glass of vodka soda. He offers no complaints and denies acute symptoms at this time. He did blood work immediately before this visit and therefore not available for review. [facility] Medical History (Updated 12/16/24 @ 12:11 by Keeley Alfonso CMA) Prominence of intramedullary nail Alcoholic fatty liver No pertinent past medical history Surgical History (Updated 12/16/24 @ 12:11 by Keeley Alfonso CMA) S/P ORIF (open reduction internal fixation) fracture History of repair of ACL Family History (Updated 12/16/24 @ 10:24 by Keeley Alfonso CMA) Brother HTN (hypertension) Social History Household Members Other:: Self with a dog Housing: House Do you presently have visiting nurse or other home services: No Comment: COUNTS CORRECT Patient Tobacco Use Status: Former Tobacco user Cigarettes Per Day: 4 Years Smoked: 30 e-Cigarette/Vaping Use: Never Used Second Hand Smoke Exposure: No service: No Current occupational status: employed Current occupation: [employer] Current occupational exposures/hazards: No (walking on snow and ice) Cognitive needs: No Hearing needs: No Vision needs: Yes (contact lenses ) Questionnaire Thrive Questionnaire Date Thrive assessed: 12/09/24 I am a: Patient What is your living situation today?: I have a steady place to live Within the past 12 months, did the food you bought not last and you didn't have the money to get more?: Never true Within the past 12 months, did you worry whether your food would run out before you got money to buy more?: Never true Do you have trouble paying for medicines?: No Do you have trouble getting transportation to medical appointments?: No Do you have trouble paying your heating and electricity bill?: No Do you have trouble taking care of your child, family member or friend?: No Do you have trouble with day-to-day activities such as bathing, preparing meals, shopping, managing finances, etc.?: No Are you currently unemployed and looking for a job?: No Are you interested in more education?: No Please select the resources that you would like help with: None Currently or been in a relationship where the following occur: No concerns reported THRIVE Score: 0 Review of Systems Const Details: Const Denies chills, Denies fatigue, Denies fever(s), Denies headache(s) and Denies weakness ENT Denies dizziness and Denies headache(s) Card Denies chest pain, Denies lightheadedness, Denies dyspnea and Denies other (Palpitations) Resp Denies cough, Denies dyspnea, Denies wheezing and Denies other ( shortness of breath) GI Denies abdominal pain, Denies melena, Denies hematochezia, Denies change in bowel habits, Denies dyspepsia and Denies nausea Denies hematuria and Denies dysuria Musc Denies abnormal gait, Denies myalgias, Denies arthralgias, Denies numbness and Denies tingling Skin/Breast Denies rash, Denies unusual bruising and Denies wounds Neuro Denies abnormal gait, Denies dizziness, Denies headache(s), Denies memory loss, Denies numbness, Denies Sensory deficit (Neuro), Denies tingling and Denies weakness Psych Denies anxiety, Denies depression, Denies memory loss Endo Denies cold intolerance, Denies fatigue, Denies heat intolerance, Denies polydipsia and Denies polyuria Aller/Immun Denies wheezing Physical exam (Primary Care) Vital Signs: Last Vital Signs Temp 97.8 F 12/20/24 09:15 Pulse 81 12/20/24 09:15 Resp 16 12/20/24 09:15 BP 152/82 H 12/20/24 09:15 Pulse Ox 98 12/20/24 09:15 Oxygen Delivery Method Room Air 12/20/24 09:15 BMI result Body Mass Index 25.0 Tobacco/Smoking Status: Tobacco use Status Tobacco use date assessed 12/20/24 12/20/24 09:14 Patient Tobacco Use Status Former Tobacco user 12/20/24 09:07 e-Cigarette/Vaping Use Never Used 12/20/24 09:07 Thrive Assessment: Date of Thrive Assessment Date Thrive assessed 12/09/24 12/20/24 09:07 Currently or been in a relationship where the following occur: No concerns reported Const Other: General: no acute distress and well developed Nutritional Appearance: well nourished Orientation/consciousness: patient oriented x3 HENMT Head: Yes normocephalic and Yes atraumatic Eyes General: appearance normal, both eyes and all related structures Pupils: Equal, round and reactive pupils present EOM: EOMs intact bilaterally Resp Effort & Inspection: normal respiratory effort Auscultation: clear to auscultation bilaterally Cardio Rate: regular rate Rhythm: regular rhythm Heart sounds: S1 normal heart sound present, S2 normal heart sound present, no gallops, no murmurs and no rubs GI Palpation (GI): No Abdominal aortic bruit present, Soft to palpation, nontender, No hepatosplenomegaly present and No Rebound tenderness present Auscultation: normal bowel sounds General: Yes no CVA tenderness Back/Spine/Pelvis Back: no CVA tenderness Cervical Spine: cervical ROM normal and No Cervical spine tenderness Thoracic/Lumbar Spine: thoraco-lumbar ROM normal, No pain with thoraco-lumbar ROM, No thoracic spinal tenderness and No lumbar spinal tenderness Extrem General: Yes normal to inspection, No edema and No calf tenderness Skin General: warm and dry. Normal skin color. Normal skin turgor Neuro General: patient oriented x3, gait normal and no focal neuro deficit Cranial nerves: Yes Equal, round and reactive pupils present Cognition (Neuro): normal cognition Gait exam (Neuro): Normal gait present Sensory Exam: No Sensory deficit (Neuro) Psych Appearance: grossly normal Affect: normal affect Attitude: cooperative Thought process: Normal thought process present Coding Level of Care Code Est Pt Level 3 (05997) Diagnoses Hypertension I10 Assessment & Plan Assessment & Plan (1) Hypertension: Code(s): I10 - Essential (primary) hypertension Category: Medical Plan: Resting blood pressure is 146/90, above goal of less than 140/90. Heart rate is 84. Will increase metoprolol to 25 mg twice daily; advised to take as prescribed. Low-sodium diet encouraged. Follow-up in 2 weeks for hypertension labs review or sooner with symptoms or concerns. Verbalized understanding and agreed with treatment plan. Medications: Changed From metoprolol tartrate 25 mg PO DAILY 30 days 30 tabs 3RF To metoprolol tartrate 25 mg PO Q12H 30 days 60 tabs 3RF
[2024-12-20 09:15] VITALS: BP 152/82; PULSE 81; RESP 16; TEMP 36.6; O2SAT 98; BMI 25.0
[2024-12-20 09:41] VITALS: BP 146/90; PULSE 84
== END 2024-12-20 09:46 | disposition home or self-care (01) ==
PROVIDERS: PCP Nurse Practitioner Family; Visit Provider Nurse Practitioner Family
DX: I10 Essential (primary) hypertension (principal)

== ENCOUNTER 2025-01-03 14:38 | Outpatient (AMB) | payer BC, SELFPAY ==
--- NOTE | 2025-01-03 14:39 | MHC.PC.OV ---
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 Allergies No Known Allergies [No Known Allergies*] Allergy (Verified 01/03/25 15:02) Medication List - Last Reconciled 01/03/25 by Marty Tripathi CNP metoprolol tartrate 25 mg PO Q12H 30 days Tobacco use date assessed: 01/03/25 Dental Screening Dental Screen Date: 01/03/25 Did you have a dental visit in the last 12 months?: Yes Did you have a dental problem in the last 6 months where you did not have access to dental care?: No Was dental information given to patient?: Patient has dentist HPI HPI Comments History of Present Illness Details 59-year-old male presents for hypertension and recent labs review follow-up. He admits to taking metoprolol as prescribed without adverse reactions. He has been making healthy dietary choices, including low-sodium diet. He notes that he significantly cut down on drinking; he had 2 drinks on Monday and 2 drinks last night. He offers no complaints and denies acute symptoms at this time. [facility] Medical History (Updated 01/03/25 @ 15:03 by Marty Tripathi CNP) Prominence of intramedullary nail Alcoholic fatty liver No pertinent past medical history Surgical History (Updated 12/16/24 @ 12:11 by TANI Khan) S/P ORIF (open reduction internal fixation) fracture History of repair of ACL Family History (Updated 12/16/24 @ 10:24 by TANI Khan) Brother HTN (hypertension) Social History Household Members Other:: Self with a dog Housing: House Do you presently have visiting nurse or other home services: No Comment: COUNTS CORRECT Patient Tobacco Use Status: Former Tobacco user Cigarettes Per Day: 4 Years Smoked: 30 e-Cigarette/Vaping Use: Never Used Second Hand Smoke Exposure: No service: No Current occupational status: employed Current occupation: [employer] Current occupational exposures/hazards: No (walking on snow and ice) Cognitive needs: No Hearing needs: No Vision needs: Yes (contact lenses ) Questionnaire Thrive Questionnaire Date Thrive assessed: 12/09/24 I am a: Patient What is your living situation today?: I have a steady place to live Within the past 12 months, did the food you bought not last and you didn't have the money to get more?: Never true Within the past 12 months, did you worry whether your food would run out before you got money to buy more?: Never true Do you have trouble paying for medicines?: No Do you have trouble getting transportation to medical appointments?: No Do you have trouble paying your heating and electricity bill?: No Do you have trouble taking care of your child, family member or friend?: No Do you have trouble with day-to-day activities such as bathing, preparing meals, shopping, managing finances, etc.?: No Are you currently unemployed and looking for a job?: No Are you interested in more education?: No Please select the resources that you would like help with: None Currently or been in a relationship where the following occur: No concerns reported THRIVE Score: 0 Review of Systems Const Details: Const Denies chills, Denies fatigue, Denies fever(s), Denies headache(s) and Denies weakness ENT Denies dizziness and Denies headache(s) Card Denies chest pain, Denies lightheadedness, Denies dyspnea and Denies other (Palpitations) Resp Denies cough, Denies dyspnea, Denies wheezing and Denies other ( shortness of breath) GI Denies abdominal pain, Denies melena, Denies hematochezia, Denies change in bowel habits, Denies dyspepsia and Denies nausea Denies hematuria and Denies dysuria Musc Denies abnormal gait, Denies myalgias, Denies arthralgias, Denies numbness and Denies tingling Skin/Breast Denies rash, Denies unusual bruising and Denies wounds Neuro Denies abnormal gait, Denies dizziness, Denies headache(s), Denies memory loss, Denies numbness, Denies Sensory deficit (Neuro), Denies tingling and Denies weakness Psych Denies anxiety, Denies depression, Denies memory loss Endo Denies cold intolerance, Denies fatigue, Denies heat intolerance, Denies polydipsia and Denies polyuria Aller/Immun Denies wheezing Physical exam (Primary Care) Vital Signs: Last Vital Signs Temp 98.1 F 01/03/25 14:43 Pulse 83 01/03/25 14:43 Resp 16 01/03/25 14:43 BP 136/86 01/03/25 14:43 Pulse Ox 96 01/03/25 14:43 Oxygen Delivery Method Room Air 01/03/25 14:43 BMI result Body Mass Index 24.6 Tobacco/Smoking Status: Tobacco use Status Tobacco use date assessed 01/03/25 01/03/25 14:46 Patient Tobacco Use Status Former Tobacco user 01/03/25 14:42 e-Cigarette/Vaping Use Never Used 01/03/25 14:42 Thrive Assessment: Date of Thrive Assessment Date Thrive assessed 12/09/24 01/03/25 14:42 Currently or been in a relationship where the following occur: No concerns reported Const Other: General: no acute distress and well developed Nutritional Appearance: well nourished Orientation/consciousness: patient oriented x3 HENMT Head: Yes normocephalic and Yes atraumatic Eyes General: appearance normal, both eyes and all related structures Pupils: Equal, round and reactive pupils present EOM: EOMs intact bilaterally Resp Effort & Inspection: normal respiratory effort Auscultation: clear to auscultation bilaterally Cardio Rate: regular rate Rhythm: regular rhythm Heart sounds: S1 normal heart sound present, S2 normal heart sound present, no gallops, no murmurs and no rubs GI Palpation (GI): No Abdominal aortic bruit present, Soft to palpation, nontender, No hepatosplenomegaly present and No Rebound tenderness present Auscultation: normal bowel sounds General: Yes no CVA tenderness Back/Spine/Pelvis Back: no CVA tenderness Cervical Spine: cervical ROM normal and No Cervical spine tenderness Thoracic/Lumbar Spine: thoraco-lumbar ROM normal, No pain with thoraco-lumbar ROM, No thoracic spinal tenderness and No lumbar spinal tenderness Extrem General: Yes normal to inspection, No edema and No calf tenderness Skin General: warm and dry. Normal skin color. Normal skin turgor Neuro General: patient oriented x3, gait normal and no focal neuro deficit Cranial nerves: Yes Equal, round and reactive pupils present Cognition (Neuro): normal cognition Gait exam (Neuro): Normal gait present Sensory Exam: No Sensory deficit (Neuro) Psych Appearance: grossly normal Affect: normal affect Attitude: cooperative Thought process: Normal thought process present Coding Level of Care Code Est Pt Level 3 (93275) Diagnoses Hypertension I10 Hypercholesterolemia E78.00 Assessment & Plan Assessment & Plan (1) Hypertension: Code(s): I10 - Essential (primary) hypertension Category: Medical Plan: Resting blood pressure is 136/86, within goal of less than 140/90. Continue current treatment regimen. Encouraged to continue low-sodium diet and cut back on alcohol intake. Follow-up in 1 month or sooner with symptoms or concerns. Verbalized understanding and agreed with treatment plan. (2) Hypercholesterolemia: Code(s): E78.00 - Pure hypercholesterolemia, unspecified Category: Medical Plan: Recent total cholesterol and LDL levels are slightly elevated, 224 and 113 respectively. Advised to limit foods high in saturated fat and avoid foods high in trans fat. Routine exercise encouraged. Encouraged to continue cut back on alcohol intake. Will recheck lipid panel levels in 2 months. Verbalized understanding and agreed with treatment plan.
[2025-01-03 14:43] VITALS: BP 136/86; PULSE 83; RESP 16; TEMP 36.7; O2SAT 96; BMI 24.6
== END 2025-01-03 15:14 | disposition home or self-care (01) ==
PROVIDERS: PCP Nurse Practitioner Family; Visit Provider Nurse Practitioner Family
DX: I10 Essential (primary) hypertension (principal); E78.00 Pure hypercholesterolemia, unspecified

== ENCOUNTER → 2025-01-03 14:38 | Outpatient (BNVA) | payer BC, SELFPAY | PROVIDERS: PCP Nurse Practitioner Family; Visit Provider Nurse Practitioner Family ==

== ENCOUNTER 2025-02-04 10:31 | Outpatient (AMB) | payer BC, SELFPAY ==
--- NOTE | 2025-02-04 10:43 | A.OFFPC_ITS ---
Vital Signs 02/04/25 10:50 02/04/25 11:18 Height 5 ft 7 in Weight 156 lb BMI 24.4 BP 142/92 H 140/90 H Blood Pressure Location Rt brachial Position Sitting Respiration 12 Pulse 74 80 Pulse Source Pulse Oximeter Auscultation Temp 98.1 F Temp Source Oral Pulse Oximetry (%) 96 Oxygen Delivery Method Room Air Intake Visit Reasons: 1 mos HTN Intake Note: Ulysses presents in the office today for a one month follow up to hypertension. 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 Allergies No Known Allergies [No Known Allergies*] Allergy (Verified 02/04/25 11:13) Medication List - Last Reconciled 02/04/25 by Marty Tripathi CNP ibuprofen (Advil) 200 mg PO Q6H metoprolol tartrate 25 mg PO Q12H 30 days Tobacco use date assessed: 02/04/25 Dental Screening Dental Screen Date: 02/04/25 Did you have a dental visit in the last 12 months?: Yes Did you have a dental problem in the last 6 months where you did not have access to dental care?: No Was dental information given to patient?: Patient has dentist HPI HPI Comments History of Present Illness Details 59-year-old male presents for hypertensi on and recent labs review follow-up. He admits to taking metoprolol as prescribed without adverse reactions. He has been making healthy dietary choices, including low-sodium diet. He notes that he significantly cut down on drinking; he has been drinking 2 glasses of mixed drinks 2-3 days weekly. He exercises routinely. He offers no complaints and denies acute symptoms at this time. [facility] Medical History (Updated 01/03/25 @ 15:03 by Marty Tripathi CNP) Prominence of intramedullary nail Alcoholic fatty liver No pertinent past medical history Surgical History (Updated 12/16/24 @ 12:11 by TANI Khan) S/P ORIF (open reduction internal fixation) fracture History of repair of ACL Family History (Updated 02/04/25 @ 10:47 by Arminda Hammer MA) Brother HTN (hypertension) Social History (Updated 02/04/25 @ 10:47 by Arminda Hammer MA) Household Members Other:: Self with a dog Housing: House Do you presently have visiting nurse or other home services: No Alcohol intake: current Comment: COUNTS CORRECT Patient Tobacco Use Status: Former Tobacco user Cigarettes Per Day: 4 Years Smoked: 30 e-Cigarette/Vaping Use: Never Used Second Hand Smoke Exposure: No service: No Current occupational status: employed Current occupation: [employer] Current occupational exposures/hazards: No (walking on snow and ice) Cognitive needs: No Hearing needs: No Vision needs: Yes (contact lenses ) Questionnaire PHQ-9 Over the last 2 weeks, how often have you been bothered by any of the following problems? 1. Little interest or pleasure in doing things: not at all 2. Feeling down, depressed, or hopeless: not at all 3. Trouble falling or staying asleep, or sleeping too much: several days 4. Feeling tired or having little energy: not at all 5. Poor appetite or overeating: not at all 6. Feeling bad about yourself - or that you are a failure or have let yourself or your family down: not at all 7. Trouble concentrating on things, such as reading the newspaper or watching television: not at all 8. Moving or speaking so slowly that other people could have noticed. Or the opposite - being so fidgety or restless that you have been moving around a lot more than usual: not at all 9. Thoughts that you would be better off or of hurting yourself in some way: not at all Total score: 1 Depression Screening Interpretation: Negative Depression Screening Done: Yes 19334 - PHQ-9 Billing: Patient declined-do not bill Source: Developed by Drs. Micah Covington, Kristy Arnold, Francis Hollingsworth and colleagues, with an educational zuleika from [employer]. Thrive Questionnaire Date Thrive assessed: 02/04/25 I am a: Patient What is your living situation today?: I have a steady place to live Within the past 12 months, did the food you bought not last and you didn't have the money to get more?: Never true Within the past 12 months, did you worry whether your food would run out before you got money to buy more?: Never true Do you have trouble paying for medicines?: No Do you have trouble getting transportation to medical appointments?: No Do you have trouble paying your heating and electricity bill?: No Do you have trouble taking care of your child, family member or friend?: No Do you have trouble with day-to-day activities such as bathing, preparing meals, shopping, managing finances, etc.?: No Are you currently unemployed and looking for a job?: No Are you interested in more education?: No Please select the resources that you would like help with: None Currently or been in a relationship where the following occur: No concerns reported THRIVE Score: 0 AUDIT C Alcohol Use Questionnaire (AUDIT-C) 1. How often do you have a drink containing alcohol?: 2-3 times a week 2. How many drinks containing alcohol do you have on a typical day when you are drinking?: 1 or 2 3. How often do you have six or more drinks on one occasion?: Monthly Total Score: 5 Score Reviewed/Action Taken: Yes ALEXA-7 AMB Questionnaire ALEXA-7 Date ALEXA - 7 assessed: 02/04/25 Feeling nervous, anxious, or on edge: 0 = Not at all Not being able to stop or control worryin = Not at all Worrying too much about different things: 0 = Not at all Trouble relaxin = Not at all Being so restless that it is hard to sit still: 0 = Not at all Becoming easily annoyed or irritable: 0 = Not at all Feeling afraid as if something awful might happen: 0 = Not at all Total ALEXA-7 score (0-4 normal; 5-9 mild; 10-14 moderate; 15-21 severe): 0 Source: Developed by Drs. Micah Covington, Kristy Arnold, Francis Hollingsworth and colleagues, with an educational zuleika from [employer]. ALEXA-7 Assessment Billing ALEXA-7 Assessment Tool: ALEXA-7 Assessment 25755 Review of Systems Const Details: Const Denies chills, Denies fatigue, Denies fever(s), Denies headache(s) and Denies weakness ENT Denies dizziness and Denies headache(s) Card Denies chest pain, Denies lightheadedness, Denies dyspnea and Denies other (Palpitations) Resp Denies cough, Denies dyspnea, Denies wheezing and Denies other ( shortness of breath) GI Denies abdominal pain, Denies melena, Denies hematochezia, Denies change in bowel habits, Denies dyspepsia and Denies nausea Denies hematuria and Denies dysuria Musc Denies abnormal gait, Denies myalgias, Denies arthralgias, Denies numbness and Denies tingling Skin/Breast Denies rash, Denies unusual bruising and Denies wounds Neuro Denies abnormal gait, Denies dizziness, Denies headache(s), Denies memory loss, Denies numbness, Denies Sensory deficit (Neuro), Denies tingling and Denies weakness Psych Denies anxiety, Denies depression, Denies memory loss Endo Denies cold intolerance, Denies fatigue, Denies heat intolerance, Denies polydipsia and Denies polyuria Aller/Immun Denies wheezing Physical exam (Primary Care) Vital Signs: Last Vital Signs Temp 98.1 F 02/04/25 10:50 Pulse 74 02/04/25 10:50 Resp 12 02/04/25 10:50 BP 142/92 H 02/04/25 10:50 Pulse Ox 96 02/04/25 10:50 Oxygen Delivery Method Room Air 02/04/25 10:50 BMI result Body Mass Index 24.4 Tobacco/Smoking Status: Tobacco use Status Tobacco use date assessed 02/04/25 02/04/25 10:53 Patient Tobacco Use Status Former Tobacco user 02/04/25 10:53 e-Cigarette/Vaping Use Never Used 02/04/25 10:53 PHQ-9: PHQ-9 Score PHQ-9: Total score 1 02/04/25 10:53 Depression Screening Interpretation: Negative Thrive Assessment: Date of Thrive Assessment Date Thrive assessed 02/04/25 02/04/25 10:53 Currently or been in a relationship where the following occur: No concerns reported Const Other: General: no acute distress and well developed Nutritional Appearance: well nourished Orientation/consciousness: patient oriented x3 HENMT Head: Yes normocephalic and Yes atraumatic Eyes General: appearance normal, both eyes and all related structures Pupils: Equal, round and reactive pupils present EOM: EOMs intact bilaterally Resp Effort & Inspection: normal respiratory effort Auscultation: clear to auscultation bilaterally Cardio Rate: regular rate Rhythm: regular rhythm Heart sounds: S1 normal heart sound present, S2 normal heart sound present, no gallops, no murmurs and no rubs GI Palpation (GI): No Abdominal aortic bruit present, Soft to palpation, nontender, No hepatosplenomegaly present and No Rebound tenderness present Auscultation: normal bowel sounds General: Yes no CVA tenderness Back/Spine/Pelvis Back: no CVA tenderness Cervical Spine: cervical ROM normal and No Cervical spine tenderness Thoracic/Lumbar Spine: thoraco-lumbar ROM normal, No pain with thoraco-lumbar ROM, No thoracic spinal tenderness and No lumbar spinal tenderness Extrem General: Yes normal to inspection, No edema and No calf tenderness Skin General: warm and dry. Normal skin color. Normal skin turgor Neuro General: patient oriented x3, gait normal and no focal neuro deficit Cranial nerves: Yes Equal, round and reactive pupils present Cognition (Neuro): normal cognition Gait exam (Neuro): Normal gait present Sensory Exam: No Sensory deficit (Neuro) Psych Appearance: grossly normal Affect: normal affect Attitude: cooperative Thought process: Normal thought process present Coding Level of Care Code Est Pt Level 3 (52077) Diagnoses Hypertension I10 Additional Codes ALEXA-7 Assessment Billing - ALEXA-7 Assessment Tool: ALEXA-7 Assessment 61797 ([id number]) Assessment & Plan Assessment & Plan (1) Hypertension: Code(s): I10 - Essential (primary) hypertension Category: Medical Plan: Resting blood pressure is 140/90, slightly above goal of less than 140/90. Heart rate is 80. Will increase metoprolol to 50 mg twice daily; advised to take as prescribed. Routine exercise and low-sodium diet encouraged. Encouraged to continue to cut down on his alcohol intake. Advised to perform fasting lipid panel blood work before next visit. Follow-up in 1 month for hypertension and hypercholesterolemia. Return sooner with symptoms or concerns. Verbalized understanding and agreed with treatment plan Orders: Orders Lipid Panel Today E78.00 - Pure hypercholesterolemia, unspecified Medications: New metoprolol tartrate 50 mg PO Q12H 30 days 60 tabs 3RF Discontinued metoprolol tartrate Discontinued Reason: Doctor's Order 25 mg PO Q12H 30 days 60 tabs 3RF
[2025-02-04 10:50] VITALS: BP 142/92; PULSE 74; RESP 12; TEMP 36.7; O2SAT 96; BMI 24.4
[2025-02-04 11:18] VITALS: BP 140/90; PULSE 80
== END 2025-02-04 11:24 | disposition home or self-care (01) ==
LOC: HO.HMCFM 10:31
PROVIDERS: PCP Nurse Practitioner Family; Visit Provider Nurse Practitioner Family
DX: I10 Essential (primary) hypertension (principal)

== ENCOUNTER → 2025-02-04 10:31 | Outpatient (BNVA) | payer BC, SELFPAY | PROVIDERS: PCP Nurse Practitioner Family; Visit Provider Nurse Practitioner Family | DX: I10 Essential (primary) hypertension (principal); Z79.899 Other long term (current) drug therapy | CPT/HCPCS: 96127 ==

== ENCOUNTER 2025-03-06 08:27 | Outpatient (REF) | payer BC, SELFPAY ==
[2025-03-06 09:29] LABS: Cholesterol 242 mg/dL (<200); HDL Cholesterol 100 mg/dL (>40); LDL Cholesterol Calculated 129 mg/dL (<100); Triglycerides 69 mg/dL (<150)
== END 2025-03-06 08:28 | disposition home or self-care (01) ==
LOC: HO.LAB 08:27
PROVIDERS: PCP Nurse Practitioner Family; Visit Provider Nurse Practitioner Family
DX: E78.00 Pure hypercholesterolemia, unspecified (principal)
CPT/HCPCS: 36415; 80061

== ENCOUNTER 2025-03-10 09:22 | Outpatient (AMB) | payer BC, SELFPAY ==
--- NOTE | 2025-03-10 09:23 | MHC.PC.OV ---
Vital Signs 03/10/25 09:27 03/10/25 09:44 Height 5 ft 7 in Weight 159 lb 4 oz BMI 24.9 BP 146/85 H 126/70 Blood Pressure Location Lt brachial Lt brachial Position Sitting Sitting Respiration 16 Pulse 62 Pulse Source Pulse Oximeter Temp 98.2 F Temp Source Oral Pulse Oximetry (%) 97 Oxygen Delivery Method Room Air Intake Visit Reasons: 1 mos HTN, hypercholesterolemia Intake Note: patient here for follow up om HTN, and Hypercholesterolemia Home Care Nurse Required: No Allergies No Known Allergies [No Known Allergies*] Allergy (Verified 03/10/25 09:39) Medication List - Last Reconciled 03/10/25 by Marty Tripathi CNP ibuprofen (Advil) 200 mg PO Q6H metoprolol tartrate 50 mg PO Q12H 30 days Tobacco use date assessed: 03/10/25 Dental Screening Dental Screen Date: 03/10/25 Did you have a dental visit in the last 12 months?: Yes Did you have a dental problem in the last 6 months where you did not have access to dental care?: No Was dental information given to patient?: Patient has dentist HPI HPI Comments History of Present Illness Details 59-year-old male presents for hypertension and hypercholesterolemia follow-up. He admits to taking metoprolol as prescribed without adverse reactions. He has been making healthy lifestyle changes. He denies family history of hyperlipidemia. He offers no complaints and denies acute symptoms at this time. [facility] Medical History (Updated 01/03/25 @ 15:03 by Marty Tripathi CNP) Prominence of intramedullary nail Alcoholic fatty liver No pertinent past medical history Surgical History (Updated 12/16/24 @ 12:11 by TANI Khan) S/P ORIF (open reduction internal fixation) fracture History of repair of ACL Family History (Updated 02/04/25 @ 10:47 by Arminda Hammer MA) Brother HTN (hypertension) Social History (Updated 02/04/25 @ 10:47 by Arminda Hammer MA) Household Members Other:: Self with a dog Housing: House Do you presently have visiting nurse or other home services: No Alcohol intake: current Comment: COUNTS CORRECT Patient Tobacco Use Status: Former Tobacco user Cigarettes Per Day: 4 Years Smoked: 30 e-Cigarette/Vaping Use: Never Used Second Hand Smoke Exposure: No service: No Current occupational status: employed Current occupation: [employer] Current occupational exposures/hazards: No (walking on snow and ice) Cognitive needs: No Hearing needs: No Vision needs: Yes (contact lenses ) Questionnaire Thrive Questionnaire Date Thrive assessed: 12/09/24 I am a: Patient What is your living situation today?: I have a steady place to live Within the past 12 months, did the food you bought not last and you didn't have the money to get more?: Never true Within the past 12 months, did you worry whether your food would run out before you got money to buy more?: Never true Do you have trouble paying for medicines?: No Do you have trouble getting transportation to medical appointments?: No Do you have trouble paying your heating and electricity bill?: No Do you have trouble taking care of your child, family member or friend?: No Do you have trouble with day-to-day activities such as bathing, preparing meals, shopping, managing finances, etc.?: No Are you currently unemployed and looking for a job?: No Are you interested in more education?: No Please select the resources that you would like help with: None Currently or been in a relationship where the following occur: No concerns reported THRIVE Score: 0 ALEXA-7 AMB Questionnaire ALEXA-7 Date ALEXA - 7 assessed: 02/04/25 Source: Developed by Drs. Micah Covington, Kristy Arnold, Francis Hollingsworth and colleagues, with an educational zuleika from [employer] Review of Systems Const Details: Const Denies chills, Denies fatigue, Denies fever(s), Denies headache(s) and Denies weakness ENT Denies dizziness and Denies headache(s) Card Denies chest pain, Denies lightheadedness, Denies dyspnea and Denies other (Palpitations) Resp Denies cough, Denies dyspnea, Denies wheezing and Denies other ( shortness of breath) GI Denies abdominal pain, Denies melena, Denies hematochezia, Denies change in bowel habits, Denies dyspepsia and Denies nausea Denies hematuria and Denies dysuria Musc Denies abnormal gait, Denies myalgias, Denies arthralgias, Denies numbness and Denies tingling Skin/Breast Denies rash, Denies unusual bruising and Denies wounds Neuro Denies abnormal gait, Denies dizziness, Denies headache(s), Denies memory loss, Denies numbness, Denies Sensory deficit (Neuro), Denies tingling and Denies weakness Psych Denies anxiety, Denies depression, Denies memory loss Endo Denies cold intolerance, Denies fatigue, Denies heat intolerance, Denies polydipsia and Denies polyuria Aller/Immun Denies wheezing Physical exam (Primary Care) Vital Signs: Last Vital Signs Temp 98.2 F 03/10/25 09:27 Pulse 62 03/10/25 09:27 Resp 16 03/10/25 09:27 BP 146/85 H 03/10/25 09:27 Pulse Ox 97 03/10/25 09:27 Oxygen Delivery Method Room Air 03/10/25 09:27 BMI result Body Mass Index 24.9 Tobacco/Smoking Status: Tobacco use Status Tobacco use date assessed 03/10/25 03/10/25 09:29 Patient Tobacco Use Status Former Tobacco user 03/10/25 09:29 e-Cigarette/Vaping Use Never Used 03/10/25 09:29 Thrive Assessment: Date of Thrive Assessment Date Thrive assessed 12/09/24 03/10/25 09:29 Currently or been in a relationship where the following occur: No concerns reported Const Other: General: no acute distress and well developed Nutritional Appearance: well nourished Orientation/consciousness: patient oriented x3 HENMT Head: Yes normocephalic and Yes atraumatic Eyes General: appearance normal, both eyes and all related structures Pupils: Equal, round and reactive pupils present EOM: EOMs intact bilaterally Resp Effort & Inspection: normal respiratory effort Auscultation: clear to auscultation bilaterally Cardio Rate: regular rate Rhythm: regular rhythm Heart sounds: S1 normal heart sound present, S2 normal heart sound present, no gallops, no murmurs and no rubs GI Palpation (GI): No Abdominal aortic bruit present, Soft to palpation, nontender, No hepatosplenomegaly present and No Rebound tenderness present Auscultation: normal bowel sounds General: Yes no CVA tenderness Back/Spine/Pelvis Back: no CVA tenderness Cervical Spine: cervical ROM normal and No Cervical spine tenderness Thoracic/Lumbar Spine: thoraco-lumbar ROM normal, No pain with thoraco-lumbar ROM, No thoracic spinal tenderness and No lumbar spinal tenderness Extrem General: Yes normal to inspection, No edema and No calf tenderness Skin General: warm and dry. Normal skin color. Normal skin turgor General: patient oriented x3, gait normal and no focal neuro deficit Cranial nerves: Yes Equal, round and reactive pupils present Cognition (Neuro): normal cognition Gait exam (Neuro): Normal gait present Sensory Exam: No Sensory deficit (Neuro) Psych Appearance: grossly normal Affect: normal affect Attitude: cooperative Thought process: Normal thought process present Coding Level of Care Code Est Pt Level 3 (08980) Diagnoses Hypertension I10 Hypercholesterolemia E78.00 Assessment & Plan Assessment & Plan (1) Hypertension: Code(s): I10 - Essential (primary) hypertension Category: Medical Plan: Resting blood pressure is 126/70, within goal of less than 140/90. Continue current treatment regimen. Low-sodium diet encouraged. Follow-up in 3 months or sooner with symptoms or concerns. Verbalized understanding and agreed with the plan. (2) Hypercholesterolemia: Code(s): E78.00 - Pure hypercholesterolemia, unspecified Category: Medical Plan: Recent total cholesterol and LDL is slightly elevated, 242 and 129 respectively, previous levels were 224 and 113 respectively. Advised to limit foods high in saturated fat and avoid foods high in trans fat. Routine exercise encouraged. Fast for 10-12 hours, may drink water, and perform lipid panel blood work 2-3 days before next visit. Follow-up in 3 months. Verbalized understanding and agreed with the plan. Orders: Orders Lipid Panel 3 Months E78.00 - Pure hypercholesterolemia, unspecified
[2025-03-10 09:27] VITALS: BP 146/85; PULSE 62; RESP 16; TEMP 36.8; O2SAT 97; BMI 24.9
[2025-03-10 09:44] VITALS: BP 126/70
== END 2025-03-10 09:47 | disposition home or self-care (01) ==
LOC: HO.HMCFM 09:22
PROVIDERS: PCP Nurse Practitioner Family; Visit Provider Nurse Practitioner Family
DX: I10 Essential (primary) hypertension (principal); E78.00 Pure hypercholesterolemia, unspecified

== ENCOUNTER → 2025-03-10 09:22 | Outpatient (BNVA) | payer BC, SELFPAY | PROVIDERS: PCP Nurse Practitioner Family; Visit Provider Nurse Practitioner Family | DX: Z13.89 Encounter for screening for other disorder (principal) ==

== ENCOUNTER 2025-04-30 09:45 | Outpatient (AMB) | payer BC, SELFPAY ==
--- NOTE | 2025-04-30 09:52 | MHC.OFFVIS ---
Vital Signs 04/30/25 10:02 Height 5 ft 7 in Weight 155 lb BMI 24.3 BP 138/85 Blood Pressure Location Lt brachial Position Sitting Pulse 68 Pulse Oximetry (%) 96 Oxygen Delivery Method Room Air Intake Visit Reasons: [place] screening Intake Note: Patient new consult for 2nd pre Colonoscopy screening. Patient denies any GI issues. 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 He is referred by Marty Tripathi. PMX Alcohol dependence Hypertension High cholesterol Alcoholic fatty liver History of right ankle fracture History of left hip fracture * SURGICAL HISTORY ACL repair ORIF Cervical neuroformaotomty C3-4-5-6 Pins in wrist s/p fx * ALLERGIES: NKDA * [employer] LABS: Laboratory Tests 12/20/24 08:08 WBC 4.9 Hgb 14.6 Hct 42.7 D MCV 99.3 H MCH 34.0 H Plt Count 240 Total Bilirubin 0.8 AST 36 ALT 31 Alkaline Phosphatase 80 TSH 1.43 TODAY'S VISIT He had a prior colonoscopy about [address] Brown, he had polyps but does not know more. He denies any bowel or upper GI problems. No anes or sed problems. He denies any asthma or cardiac problems. No ID Problems. There is no known FHX of crc or polyps. [facility] Medical History (Updated 04/30/25 @ 16:46 by CAMERON Thompson) Colon cancer screening Prostate cancer screening Right ankle pain Left hip pain Normal physical examination, routine Laboratory tests ordered as part of a complete physical exam (CPE) Prominence of intramedullary nail Alcoholic fatty liver No pertinent past medical history Surgical History S/P ORIF (open reduction internal fixation) fracture History of repair of ACL Family History Brother HTN (hypertension) Social History Household Members Other:: Self with a dog Housing: House Do you presently have visiting nurse or other home services: No Alcohol intake: current Comment: COUNTS CORRECT Patient Tobacco Use Status: Former Tobacco user Cigarettes Per Day: 4 Years Smoked: 30 e-Cigarette/Vaping Use: Never Used Second Hand Smoke Exposure: No service: No Current occupational status: employed Current occupation: [employer] Current occupational exposures/hazards: No (walking on snow and ice) Cognitive needs: No Hearing needs: No Vision needs: Yes (contact lenses ) Review of Systems Const Denies fatigue, Denies fever(s), Denies night sweats, Denies poor appetite and Denies weight loss ENT Reports Normal hearing present, Denies dysphagia, Denies odynophagia, Denies throat swelling and Denies tongue swelling Card Reports no additional complaints Resp Reports no additional complaints GI Details: Denies abdominal pain, Denies melena, Denies bloating, Denies hematochezia, Denies constipation, Denies GI cramping, Denies dysphagia, Denies excessive flatus, Denies early satiety, Denies heartburn, Denies diarrhea, Denies nausea, Denies odynophagia, Denies vomiting and Denies hematemesis Skin/Breast Denies pruritus, Denies lesions, Denies rash and Denies jaundice Neuro Reports Normal hearing present and Denies Abnormal speech present Endo Denies fatigue Aller/Immun Denies throat swelling and Denies tongue swelling Physical Exam Vital Signs: Last Vital Signs Pulse 68 04/30/25 10:02 BP 138/85 04/30/25 10:02 Pulse Ox 96 04/30/25 10:02 Oxygen Delivery Method Room Air 04/30/25 10:02 BMI result Body Mass Index 24.3 Const General: cooperative, no acute distress, well developed and well groomed Nutritional Appearance: average body habitus and well nourished Orientation/consciousness: oriented to person, oriented to place and oriented to time Limitations: No language barrier HEENT Head: Yes normocephalic and Yes atraumatic Eyes General: appearance normal, both eyes and all related structures Pupils: Equal, round and reactive pupils present Neck Neck: Yes normal visual inspection and Yes no lymphadenopathy Thyroid: Thyroid normal Resp Effort & Inspection: normal respiratory effort and able to speak in complete sentences Auscultation: clear to auscultation bilaterally Cardio Rate: regular rate Rhythm: regular rhythm Heart sounds: Normal, physiologic split S2 sound present Peripheral pulses: radial pulses present and posterior tibial pulses present GI Inspection: No distended and No Abdominal panniculus present Palpation (GI): Soft to palpation, nontender, no guarding, not rigid and No hepatosplenomegaly present Percussion: Yes normal to percussion Auscultation: normal bowel sounds Rectal Exam - Male: Yes deferred Skin General skin exam: no rashes or lesions noted, turgor normal, skin not dry, no jaundice, No spider nevi and no striae Rashes: no rashes Nails: normal Neuro General: oriented to person, oriented to place and oriented to time Cranial nerves: Yes Equal, round and reactive pupils present and Yes Normal hearing present Speech: No Abnormal speech present Extrem Other: brace left knee General: Yes normal to inspection, No clubbing, No cyanosis and No edema Psych Appearance: grossly normal and well kempt Mental Status: mental status grossly normal Speech and movement: Normal speech and movement present Affect: normal affect Attitude: cooperative Thought process: Normal thought process present and not confabulating Thought content: Normal thought content present Insight: Good insight present (Psych) Judgement: Good judgement present (Psych) Assessment & Plan Assessment & Plan (1) Pre-op examination: Code(s): Z01.818 - Encounter for other preprocedural examination Category: Medical (2) Hyperplastic polyp of large intestine: Comment: Stephanie 02/1999, pathology report only discovered Code(s): K63.5 - Polyp of colon Category: Medical (3) Alcoholic fatty liver: Code(s): K70.0 - Alcoholic fatty liver Category: Medical (4) Alcohol dependence: Code(s): F10.20 - Alcohol dependence, uncomplicated Category: Medical Plan He had a prior colonoscopy about [address] Brown, he had polyps but does not know more. I discover pathology report from 1998 showing a hyperplastic only polyp He denies any bowel or upper GI problems. No anes or sed problems. He denies any asthma or cardiac problems. No ID Problems. There is no known FHX of crc or polyps. Orders: Orders Colonoscopy - GI Use Only Today F10.20 - Alcohol dependence, uncomplicated, K70.0 - Alcoholic fatty liver, Z01.818 - Encounter for other preprocedural examination Medications: New sodium,potassium,mag sulfates 17.5-3.13-1.6 gram (Suprep Bowel Prep Kit) DILUTE each bottle with 16oz of water; drink first bottle 4pm evening before procedure AND second bottle at 10pm; follow each bottle with at least 32 oz.of water within 1 hour after each bottle 354 mL 0RF colonoscopy prep Coding Level of Care Code New Pt Level 3 (29798) Diagnoses Pre-op examination Z01.818 Hyperplastic polyp of large intestine K63.5 Alcoholic fatty liver K70.0 Alcohol dependence F10.20
[2025-04-30 10:02] VITALS: BP 138/85; PULSE 68; O2SAT 96; BMI 24.3
--- OUTSIDE RECORDS SUMMARY | 2025-04-30 10:07 | XMS_ITS | Patient Health Record ---
Author Organization [facility] Address [address] [place] [address] Care Team Providers Care Sheep Herder Name Role Phone Micah Brown [phone] Reason For Referral No Information Plan Of Treatment No Information
== END 2025-04-30 10:38 | disposition home or self-care (01) ==
LOC: HO.HGI 09:46
PROVIDERS: PCP Nurse Practitioner Family; Visit Provider Nurse Practitioner
DX: Z01.818 Encounter for other preprocedural examination (principal); Z12.11 Encounter for screening for malignant neoplasm of colon; Z86.0102 Personal history of hyperplastic colon polyps; K70.0 Alcoholic fatty liver; F10.20 Alcohol dependence, uncomplicated
CPT/HCPCS: S0285

== ENCOUNTER 2025-06-06 08:05 | Outpatient (REF) | payer BC, SELFPAY ==
--- OUTSIDE RECORDS SUMMARY | 2025-06-06 08:12 | XMS_ITS | Patient Health Record ---
Author Organization [facility] Address [address] [place] [address] Care Team Providers Care Contract Officer Name Role Phone Micah Brown [phone] Reason For Referral No Information Plan Of Treatment No Information
[2025-06-06 09:38] LABS: Cholesterol 245 mg/dL (<200); HDL Cholesterol 112 mg/dL (>40); Triglycerides 68 mg/dL (<150)
== END 2025-06-06 08:06 | disposition home or self-care (01) ==
LOC: HO.LAB 08:05
PROVIDERS: PCP Nurse Practitioner Family; Visit Provider Nurse Practitioner Family
DX: E78.00 Pure hypercholesterolemia, unspecified (principal)
CPT/HCPCS: 36415; 80061

== ENCOUNTER 2025-06-13 09:10 | Outpatient (AMB) | payer BC, SELFPAY ==
--- NOTE | 2025-06-13 09:13 | A.OFFPC_ITS ---
Vital Signs 06/13/25 09:20 Height 5 ft 7 in Weight 151 lb BMI 23.6 BP 131/84 Blood Pressure Location Lt brachial Position Sitting Respiration 16 Pulse 62 Pulse Source Pulse Oximeter Temp 98.0 F Temp Source Oral Pulse Oximetry (%) 97 Oxygen Delivery Method Room Air Intake Visit Reasons: 3 mos HTN, hypercholesterolemia Intake Note: patient here for 3 month follow up for HTN and hypercholesrolemia [address] Foreman Required: No Allergies No Known Allergies (No Known Allergies*) Allergy (Verified 06/13/25 09:42) Medication List - Last Reconciled 06/13/25 by Marty Tripathi CNP ibuprofen (Advil) 200 mg PO Q6H metoprolol tartrate 50 mg PO Q12H 30 days sodium,potassium,mag sulfates 17.5-3.13-1.6 gram (Suprep Bowel Prep Kit) DILUTE each bottle with 16oz of water; drink first bottle 4pm evening before procedure AND second bottle at 10pm; follow each bottle with at least 32 oz.of water within 1 hour after each bottle Tobacco use date assessed: 06/13/25 Dental Screening Dental Screen Date: 06/13/25 Did you have a dental visit in the last 12 months?: Yes Did you have a dental problem in the last 6 months where you did not have access to dental care?: No Was dental information given to patient?: Patient has dentist HPI HPI Comments History of Present Illness Details 59-year-old male presents for hypertensi on and hypercholesterolemia follow-up. He admits to taking metoprolol as prescribed without adverse reactions. He has been making healthy dietary choices and walking routinely. No family history of hyperlipidemia. He offers no complaints and denies acute symptoms at this time. He is wearing a knee brace to his left knee due to chronic left knee pain. He takes Advil with relief. He is followed by [facility] who recommended surgery, but he is putting off surgery until [facility], possibly next year. [facility] Medical History (Updated 06/13/25 @ 10:04 by Marty Tripathi CNP) Colon cancer screening Prostate cancer screening Right ankle pain Left hip pain Normal physical examination, routine Laboratory tests ordered as part of a complete physical exam (CPE) Prominence of intramedullary nail Alcoholic fatty liver No pertinent past medical history Surgical History S/P ORIF (open reduction internal fixation) fracture History of repair of ACL Family History Brother HTN (hypertension) Social History Household Members Other:: Self with a dog Housing: House Do you presently have visiting nurse or other home services: No Alcohol intake: current Comment: COUNTS CORRECT Patient Tobacco Use Status: Former Tobacco user Cigarettes Per Day: 4 Years Smoked: 30 e-Cigarette/Vaping Use: Never Used Second Hand Smoke Exposure: No service: No Current occupational status: employed Current occupation: [employer] Current occupational exposures/hazards: No (walking on snow and ice) Cognitive needs: No Hearing needs: No Vision needs: Yes (contact lenses ) Questionnaire Thrive Questionnaire Date Thrive assessed: 12/09/24 I am a: Patient What is your living situation today?: I have a steady place to live Within the past 12 months, did the food you bought not last and you didn't have the money to get more?: Never true Within the past 12 months, did you worry whether your food would run out before you got money to buy more?: Never true Do you have trouble paying for medicines?: No Do you have trouble getting transportation to medical appointments?: No Do you have trouble paying your heating and electricity bill?: No Do you have trouble taking care of your child, family member or friend?: No Do you have trouble with day-to-day activities such as bathing, preparing meals, shopping, managing finances, etc.?: No Are you currently unemployed and looking for a job?: No Are you interested in more education?: No Please select the resources that you would like help with: None Currently or been in a relationship where the following occur: No concerns reported THRIVE Score: 0 ALEXA-7 AMB Questionnaire ALEXA-7 Date ALEXA - 7 assessed: 02/04/25 Source: Developed by Drs. Micah Covington, Kristy Arnold, Francis Hollingsworth and colleagues, with an educational zuleika from [employer]. Review of Systems Const Details: Const Denies chills, Denies fatigue, Denies fever(s), Denies headache(s) and Denies weakness ENT Denies dizziness and Denies headache(s) Card Denies chest pain, Denies lightheadedness, Denies dyspnea and Denies other (Palpitations) Resp Denies cough, Denies dyspnea, Denies wheezing and Denies other ( shortness of breath) GI Denies abdominal pain, Denies melena, Denies hematochezia, Denies change in bowel habits, Denies dyspepsia and Denies nausea Denies hematuria and Denies dysuria Musc Reports as per HPI Skin/Breast Denies rash, Denies unusual bruising and Denies wounds Neuro Denies abnormal gait, Denies dizziness, Denies headache(s), Denies memory loss, Denies numbness, Denies Sensory deficit (Neuro), Denies tingling and Denies weakness Psych Denies anxiety, Denies depression, Denies memory loss Endo Denies cold intolerance, Denies fatigue, Denies heat intolerance, Denies polydipsia and Denies polyuria Aller/Immun Denies wheezing Physical exam (Primary Care) Vital Signs: Last Vital Signs Temp 98.0 F 06/13/25 09:20 Pulse 62 06/13/25 09:20 Resp 16 06/13/25 09:20 BP 131/84 06/13/25 09:20 Pulse Ox 97 06/13/25 09:20 Oxygen Delivery Method Room Air 06/13/25 09:20 BMI result Body Mass Index 23.6 Tobacco/Smoking Status: Tobacco use Status Tobacco use date assessed 06/13/25 06/13/25 09:24 Patient Tobacco Use Status Former Tobacco user 06/13/25 09:14 e-Cigarette/Vaping Use Never Used 06/13/25 09:14 Thrive Assessment: Date of Thrive Assessment Date Thrive assessed 12/09/24 06/13/25 09:14 Currently or been in a relationship where the following occur: No concerns reported Const Other: General: no acute distress and well developed Nutritional Appearance: well nourished Orientation/consciousness: patient oriented x3 HENMT Head: Yes normocephalic and Yes atraumatic Eyes General: appearance normal, both eyes and all related structures Pupils: Equal, round and reactive pupils present EOM: EOMs intact bilaterally Resp Effort & Inspection: normal respiratory effort Auscultation: clear to auscultation bilaterally Cardio Rate: regular rate Rhythm: regular rhythm Heart sounds: S1 normal heart sound present, S2 normal heart sound present, no gallops, no murmurs and no rubs GI Palpation (GI): No Abdominal aortic bruit present, Soft to palpation, nontender, No hepatosplenomegaly present and No Rebound tenderness present Auscultation: normal bowel sounds General: Yes no CVA tenderness Back/Spine/Pelvis Back: no CVA tenderness Cervical Spine: cervical ROM normal and No Cervical spine tenderness Thoracic/Lumbar Spine: thoraco-lumbar ROM normal, No pain with thoraco-lumbar ROM, No thoracic spinal tenderness and No lumbar spinal tenderness Extrem General: Yes normal to inspection, No edema and No calf tenderness Skin General: warm and dry. Normal skin color. Normal skin turgor Neuro General: patient oriented x3, gait normal and no focal neuro deficit Cranial nerves: Yes Equal, round and reactive pupils present Cognition (Neuro): normal cognition Gait exam (Neuro): Normal gait present Sensory Exam: No Sensory deficit (Neuro) Psych Appearance: grossly normal Affect: normal affect Attitude: cooperative Thought process: Normal thought process present Coding Level of Care Code Est Pt Level 4 (70880) Diagnoses Hypertension I10 Hypercholesterolemia E78.00 Chronic pain of left knee M25.562; G89.29 Assessment & Plan Assessment & Plan (1) Hypertension: Code(s): I10 - Essential (primary) hypertension Category: Medical Plan: Blood pressure is 131/84, within goal of less than 140/90. Continue current treatment regimen. Low-sodium diet encouraged. Follow-up in 3 months or sooner with symptoms or concerns. Verbalized understanding and agreed with the plan. (2) Hypercholesterolemia: Code(s): E78.00 - Pure hypercholesterolemia, unspecified Category: Medical Plan: Recent total cholesterol and LDL levels are elevated, 245 and 120 respectively; previous levels were 242 and 129 respectively; triglycerides and HDL levels are normal. Atorvastatin 10 mg daily at bedtime ordered; advised to take as prescribed. Instructed on the risks, benefits, and potential adverse reactions of the medication. Advised to limit foods high in saturated fat and avoid foods high in trans fat. Routine exercise encouraged. Fast for 10-12 hours, may drink water, and perform lipid panel blood work in 2 months. Will review results and make changes as needed. Verbalized understanding and agreed with the plan. (3) Chronic pain of left knee: Code(s): M25.562 - Pain in left knee; G89.29 - Other chronic pain Category: Medical Plan: He is wearing a knee brace to his left knee due to chronic left knee pain. He takes Advil with relief. He is followed by [facility] who recommended surgery, but he is putting off surgery until [facility], possibly next year. Advised to continue current treatment regimen and follow-up with [facility] as planned. Verbalized understanding and agreed with the plan. Orders: Orders Lipid Panel 2 Months E78.00 - Pure hypercholesterolemia, unspecified Medications: New atorvastatin (Lipitor) 10 mg PO BEDTIME 30 tabs 3RF 30 days
[2025-06-13 09:20] VITALS: BP 131/84; PULSE 62; RESP 16; TEMP 36.7; O2SAT 97; BMI 23.6
--- OUTSIDE RECORDS SUMMARY | 2025-06-13 09:25 | XMS_ITS | Patient Health Record ---
Author Organization [facility] Address [address] [place] [address] Care Team Providers Care Fiber Optic Splicer Name Role Phone Micah Brown [phone] Reason For Referral No Information Plan Of Treatment No Information
== END 2025-06-13 10:02 | disposition home or self-care (01) ==
LOC: HO.HMCFM 09:11
PROVIDERS: PCP Nurse Practitioner Family; Visit Provider Nurse Practitioner Family
DX: I10 Essential (primary) hypertension (principal); E78.00 Pure hypercholesterolemia, unspecified; M25.562 Pain in left knee; G89.29 Other chronic pain

== ENCOUNTER 2025-08-29 06:48 | Outpatient (REF) | payer BC, SELFPAY ==
--- OUTSIDE RECORDS SUMMARY | 2025-08-29 06:51 | XMS_ITS | Patient Health Record ---
Author Organization [facility] Address [address] [place] [address] Care Team Providers Care Personal Injury Specialist Name Role Phone Micah Brown [phone] Reason For Referral No Information Plan Of Treatment No Information
[2025-08-29 08:00] LABS: Cholesterol 235 mg/dL (<200); HDL Cholesterol 126 mg/dL (>40); Triglycerides 100 mg/dL (<150)
== END 2025-08-29 06:49 | disposition home or self-care (01) ==
LOC: HO.LAB 06:48
PROVIDERS: PCP Nurse Practitioner Family; Visit Provider Nurse Practitioner Family
DX: E78.00 Pure hypercholesterolemia, unspecified (principal)
CPT/HCPCS: 36415; 80061

== ENCOUNTER 2025-09-15 08:20 | Outpatient (AMB) | payer BC, SELFPAY ==
--- NOTE | 2025-09-15 08:22 | MHC.PC.OV ---
Vital Signs 09/15/25 08:25 Height 5 ft 7 in Weight 154 lb 2 oz BMI 24.1 BP 133/77 Blood Pressure Location Rt brachial Position Sitting Respiration 16 Pulse 58 Pulse Source Pulse Oximeter Temp 98.3 F Temp Source Oral Pulse Oximetry (%) 96 Oxygen Delivery Method Room Air Intake Visit Reasons: 3 mos HTN Intake Note: patient here for 3month follow up Environmental Systems Coordinator Required: No Allergies No Known Allergies (No Known Allergies*) Allergy (Verified 09/15/25 08:30) Medication List - Last Reconciled 09/15/25 by Marty Tripathi CNP atorvastatin (Lipitor) 10 mg PO BEDTIME 30 days ibuprofen (Advil) 200 mg PO Q6H metoprolol tartrate 50 mg PO Q12H 30 days sodium,potassium,mag sulfates 17.5-3.13-1.6 gram (Suprep Bowel Prep Kit) DILUTE each bottle with 16oz of water; drink first bottle 4pm evening before procedure AND second bottle at 10pm; follow each bottle with at least 32 oz.of water within 1 hour after each bottle Tobacco use date assessed: 09/15/25 Dental Screening Dental Screen Date: 09/15/25 Did you have a dental visit in the last 12 months?: Yes Did you have a dental problem in the last 6 months where you did not have access to dental care?: No Was dental information given to patient?: Patient has dentist HPI HPI Comments History of Present Illness Details 59-year-old male presents for hypertension and hypercholesterolemia follow-up. He admits to taking his medications as prescribed without adverse reactions. He notes that he has been making healthy lifestyle changes. He offers no complaints and denies acute symptoms at this time. [facility] Medical History (Updated 06/13/25 @ 10:04 by Marty Tripathi CNP) Colon cancer screening Prostate cancer screening Right ankle pain Left hip pain Normal physical examination, routine Laboratory tests ordered as part of a complete physical exam (CPE) Prominence of intramedullary nail Alcoholic fatty liver No pertinent past medical history Surgical History S/P ORIF (open reduction internal fixation) fracture History of repair of ACL Family History Brother HTN (hypertension) Social History Household Members Other:: Self with a dog Housing: House Do you presently have visiting nurse or other home services: No Alcohol intake: current Comment: COUNTS CORRECT Patient Tobacco Use Status: Former Tobacco user Cigarettes Per Day: 4 Years Smoked: 30 e-Cigarette/Vaping Use: Never Used Second Hand Smoke Exposure: No service: No Current occupational status: employed Current occupation: [employer] Current occupational exposures/hazards: No (walking on snow and ice) Cognitive needs: No Hearing needs: No Vision needs: Yes (contact lenses ) Questionnaire Thrive Questionnaire Date Thrive assessed: 12/09/24 I am a: Patient What is your living situation today?: I have a steady place to live Within the past 12 months, did the food you bought not last and you didn't have the money to get more?: Never true Within the past 12 months, did you worry whether your food would run out before you got money to buy more?: Never true Do you have trouble paying for medicines?: No Do you have trouble getting transportation to medical appointments?: No Do you have trouble paying your heating and electricity bill?: No Do you have trouble taking care of your child, family member or friend?: No Do you have trouble with day-to-day activities such as bathing, preparing meals, shopping, managing finances, etc.?: No Are you currently unemployed and looking for a job?: No Are you interested in more education?: No Please select the resources that you would like help with: None Currently or been in a relationship where the following occur: No concerns reported THRIVE Score: 0 ALEXA-7 AMB Questionnaire ALEXA-7 Date ALEXA - 7 assessed: 02/04/25 Source: Developed by Drs. Micah Covington, Kristy Arnold, Francis Hollingsworth and colleagues, with an educational zuleika from [employer]. Review of Systems Const Details: Const Denies chills, Denies fatigue, Denies fever(s), Denies headache(s) and Denies weakness ENT Denies dizziness and Denies headache(s) Card Denies chest pain, Denies lightheadedness, Denies dyspnea and Denies other (Palpitations) Resp Denies cough, Denies dyspnea, Denies wheezing and Denies other ( shortness of breath) GI Denies abdominal pain, Denies melena, Denies hematochezia, Denies change in bowel habits, Denies dyspepsia and Denies nausea Denies hematuria and Denies dysuria Musc Denies abnormal gait, Denies myalgias, Denies arthralgias, Denies numbness and Denies tingling Skin/Breast Denies rash, Denies unusual bruising and Denies wounds Neuro Denies abnormal gait, Denies dizziness, Denies headache(s), Denies memory loss, Denies numbness, Denies Sensory deficit (Neuro), Denies tingling and Denies weakness Psych Denies anxiety, Denies depression, Denies memory loss Endo Denies cold intolerance, Denies fatigue, Denies heat intolerance, Denies polydipsia and Denies polyuria Aller/Immun Denies wheezing Physical exam (Primary Care) Vital Signs: Last Vital Signs Temp 98.3 F 09/15/25 08:25 Pulse 58 09/15/25 08:25 Resp 16 09/15/25 08:25 BP 133/77 09/15/25 08:25 Pulse Ox 96 09/15/25 08:25 Oxygen Delivery Method Room Air 09/15/25 08:25 BMI result Body Mass Index 24.1 Tobacco/Smoking Status: Tobacco use Status Tobacco use date assessed 09/15/25 09/15/25 08:28 Patient Tobacco Use Status Former Tobacco user 09/15/25 08:24 e-Cigarette/Vaping Use Never Used 09/15/25 08:24 Thrive Assessment: Date of Thrive Assessment Date Thrive assessed 12/09/24 09/15/25 08:24 Currently or been in a relationship where the following occur: No concerns reported Const Other: General: no acute distress and well developed Nutritional Appearance: well nourished Orientation/consciousness: patient oriented x3 [facility] Head: Yes normocephalic and Yes atraumatic Eyes General: appearance normal, both eyes and all related structures Pupils: Equal, round and reactive pupils present EOM: EOMs intact bilaterally Resp Effort & Inspection: normal respiratory effort Auscultation: clear to auscultation bilaterally Cardio Rate: regular rate Rhythm: regular rhythm Heart sounds: S1 normal heart sound present, S2 normal heart sound present, no gallops, no murmurs and no rubs Extrem General: Yes normal to inspection, No edema and No calf tenderness Skin General: warm and dry. Normal skin color. Normal skin turgor Neuro General: patient oriented x3, gait normal and no focal neuro deficit Cranial nerves: Yes Equal, round and reactive pupils present Cognition (Neuro): normal cognition Gait exam (Neuro): Normal gait present Sensory Exam: No Sensory deficit (Neuro) Psych Appearance: grossly normal Affect: normal affect Attitude: cooperative Thought process: Normal thought process present Coding Level of Care Code Est Pt Level 4 (74940) Diagnoses Hypertension I10 Hypercholesterolemia E78.00 Assessment & Plan Assessment & Plan (1) Hypertension: Code(s): I10 - Essential (primary) hypertension Category: Medical Plan: Blood pressure is 133/77, within goal of less than 140/90. Continue current treatment regimen. Low-sodium diet encouraged. Follow-up in 2-3 months for transfer of care with a new provider. Return sooner with symptoms or concerns. Verbalized understanding and agreed with the plan. (2) Hypercholesterolemia: Code(s): E78.00 - Pure hypercholesterolemia, unspecified Category: Medical Plan: Recent total cholesterol is elevated, 235, previous level was 245. Triglycerides, LDL, and HDL levels are normal. Atorvastatin increased to 20 mg daily at bedtime; advised to take as prescribed. Advised to limit foods high in saturated fat and avoid foods high in trans fat. Routine exercise encouraged. Fast for 10-12 hours, may drink water, and perform independent blood work a few days before next visit. Follow-up in 2-3 months. Verbalized understanding and agreed with the plan. Orders: Orders Lipid Panel 2 Months E78.00 - Pure hypercholesterolemia, unspecified Medications: New atorvastatin (Lipitor) 20 mg PO BEDTIME 30 tabs 3RF 30 days Discontinued atorvastatin (Lipitor) Discontinued Reason: Doctor's Order 10 mg PO BEDTIME 30 days 30 tabs 3RF
[2025-09-15 08:25] VITALS: BP 133/77; PULSE 58; RESP 16; TEMP 36.8; O2SAT 96; BMI 24.1
== END 2025-09-15 08:43 | disposition home or self-care (01) ==
LOC: HO.HMCFM 08:21
PROVIDERS: PCP Nurse Practitioner Family; Visit Provider Nurse Practitioner Family
DX: I10 Essential (primary) hypertension (principal); E78.00 Pure hypercholesterolemia, unspecified